=== PATIENT | female | born 1975 | race Caucasian/White ===

== ENCOUNTER → 2017-06-12 | Outpatient (CLI) | payer BC ==
[~2017-06-12] MED LIST: CLON0.5T3 PO; DOCU100C31 PO; ERGO500011 PO; FLUD0.1T10 PO; FLUO20CA20 PO; FLUT0.15 NAE; IBUP-1050 PO; LEVO-14 PO; LEVO50TA6 PO; MECL1TAB42 PO; MODA1TAB PO; MULTTAB PO; ONDA4TAB46 PO; ORALTAB2 PO; POLY335019 PO; SENN-61 PO; TOPI100T34 PO; TRAM-10 PO; VNTHFA/IN INH
--- NOTE | 2017-06-12 16:07 | DIAGNOSTIC IMAGING REPORT ---
R LOWER EXT JOINT WITHOUT CLINICAL HISTORY: RIGHT KNEE PAIN pain TECHNIQUE: Multiaxial MRI acquisition COMPARISON STUDY: None FINDINGS: Signal characteristics the osseous structures are unremarkable. There is no significant bone marrow replacing process. Anterior and posterior cruciate ligaments are intact. The collateral ligaments are unremarkable. Quadriceps tendon is intact. Patellar articulating surface is negative for disruption. Mild edema surrounding the infraspinatus tendon insertion at the anterior tibial tubercles. Very small joint effusion. Dilation of menisci shows lateral meniscus to be unremarkable. Medial meniscus shows grade 2. Intrameniscal degenerative signal although well-defined acute tear is not appreciated. There are findings of moderate thinning of the articular services of the medial and to lesser extent lateral joint compartments. IMPRESSION: 1. Mild infrapatellar tendinopathy. 2. All major ligamentous and tendinous are intact. 3. Mild degenerative substance change medial meniscus with no evidence for meniscal tear. 4. Mild degenerative thinning articular services medial and lateral joint compartments. The above report was generated using voice recognition software. It may contain grammatical, syntax or spelling errors. Electronically signed by: Ricky Velasco M.D. 06/12/2017 4:06 PM Dictated Date/Time: 06/12/2017 4:02 PM
== END | disposition home or self-care (01) ==
PROVIDERS: ATTEND Orthopaedic Surgery
DX: M25.561 Pain in right knee (principal)

== ENCOUNTER 2020-04-22 17:11 | Inpatient (IN) ==
[2020-04-22] MEDS ORDERED: FAMOTIDINE 20MG IV PUSH 20 MG/5 ML SYR IV STA (18:31)
[2020-04-22] MEDS ORDERED: diphenhydrAMINE 50 MG/ML VIAL IV STA (18:31)
[2020-04-22] MEDS ORDERED: DEXAMETHASONE SOD INJ 10 MG/ML VIAL IV ONE (18:31)
[2020-04-22] MEDS ORDERED: SODIUM CHLORIDE 0.9% 1000ML 1,000 ML IV SCH (18:45)
--- NOTE | 2020-04-22 19:31 | Emergency Department Note ---
History of Present Illness General Chief complaint: Facial Injury/Pain Stated complaint: SWOLLEN FACE, EYES BLURRY, CANT SWALLOW Time Seen by Provider: 04/22/20 18:10 History of Present Illness Maximum Pain Intensity: 8 This is a 45-year-old female that presents to the emergency department via private vehicle with complaints of "swollen face, eyes blurry, cannot swallow". The patient states that she had a bite on the right calf region in late February of this year. She was treated with doxycycline for suspected cellulitis. She then notes that Mar 25 of this year she developed a lump behind the right ear. She was once again placed on doxycycline and notes that she had a CT scan performed of the area. She has since then followed up with the PCP as well as infectious disease. She notes that she did have a positive toxoplasmosis IgM but will need to have another 1 to confirm this. She notes persistent swelling to the right side of the face that has not improved much. The patient notes that she is currently on azithromycin and the last dose was to be today but could not tolerate this noting that she had trouble swallowing. She notes that when she awoke today she had swelling to the right side of the face which is worse than what she had before and also notes pain into the right ear, and right eye. She also notes right eye blurriness. She notes that the pain in the right eye is also with movement. Overall discomfort currently is an 8/10. Home Medications Home Medications Medication Instructions Recorded Confirmed Type albuterol sulfate 2 - 4 puff INHALATION Q6H PRN 05/03/18 04/22/20 History meclizine 25 mg PO TID PRN 05/03/18 04/22/20 History multivitamin 1 tab PO QAM 05/03/18 04/22/20 History fluoxetine 80 mg PO QAM 03/26/20 04/22/20 History lorazepam 1 - 2 mg PO HS 04/22/20 04/22/20 History propranolol 40 mg PO DAILY 04/22/20 04/22/20 History sodium chloride 1,000 mg PO DAILY 04/22/20 04/22/20 History sucralfate 1 g PO ACHS 04/22/20 04/22/20 History topiramate 100 mg PO BID 04/22/20 04/22/20 History modafinil 200 mg PO USEASDIRECTD 04/23/20 04/23/20 History Allergies Allergy/AdvReac Type Severity Reaction Status Date / Time latex Allergy Intermediate HIVES Verified 04/22/20 22:03 Bactrim Allergy Mild HIVES Verified 05/09/17 11:59 Cipro Allergy Mild HIVES Verified 05/09/17 11:59 ciprofloxacin Allergy Mild HIVES Verified 04/22/20 22:03 sulfamethoxazole Allergy Mild HIVES Verified 04/22/20 22:03 Cephalosporins Allergy Unknown Hives Verified 04/22/20 22:03 chlorpheniramine Allergy Unknown Unknown Verified 04/22/20 22:03 propoxyphene Allergy Unknown Unknown Verified 04/22/20 22:03 Quinolones Allergy Unknown Unknown Verified 04/22/20 22:03 trimethoprim Allergy Unknown Unknown Verified 04/22/20 22:03 Past Med/Surg History Medical History Depression Migraine No pertinent family history PCOS (polycystic ovarian syndrome) POTS (postural orthostatic tachycardia syndrome) Surgical History H/O dilation and curettage H/O laparoscopy History of hysterectomy Hx of tonsillectomy Social History Smoking Status: Never smoker Hx Alcohol Use: Yes Hx Substance Use: No Preferred Language: Frisian Communication Ability: Effective Extraction Operator Required: No Beliefs That Will Affect Care: None Current Living Situation: Spouse and Family Other Information That Helps Us Care for You: No Feels Safe at Home: Yes Safety Concerns: Feels Safe At This Time Assistive Devices: None Assistive Devices Comment: retainer Review of Systems A total of 10 systems reviewed and were otherwise negative Physical Exam Vital Signs Vital Signs - 24 hr 04/22/20 17:28 04/22/20 20:53 04/22/20 23:07 Temperature 37.1 C Temperature Source Oral Pulse Rate 82 Pulse Rate [Right Finger] 63 63 Respiratory Rate 18 18 18 Respiratory Effort / Characteristics Non-Labored Spontaneous Respiratory Depth Normal Respiratory Pattern Regular Blood Pressure 118/85 Blood Pressure [Right Arm] 126/82 137/88 Blood Pressure Mean 96 Blood Pressure Mean [Right Arm] 96 104 Blood Pressure Position Sitting Pulse Oximetry 97 96 99 Oxygen Delivery Method Room Air Sepsis Recent Fever Within 48 Hours No Sepsis New/Unexplained Change in Mental Status No Sepsis Action Taken by Nursing No Action Required VITAL SIGNS - Vital signs and nursing notes were reviewed. Stable and afebrile. GENERAL -45-year-old female appearing her stated age who is in no acute di stress. Communicates well with provider and answers questions appropriately. SKIN -there are small nonpurulent papules that are throughout the periorbital region and predominantly on the right side of the face and right side of the neck. Mild erythema to these regions. No drainage on examination. There is edema noted to the right side of the face and periorbitally with mild erythema. HEAD - NC/AT. EYES - PERRL with EOMI bilaterally. Sclera anicteric. Palpebral conjunctiva pink and moist with no injection noted. No appreciated photophobia on examination. No evidence of muscle entrapment. Pupil, iris and surrounding structures are within normal limits. EARS - No deformities of external structures noted on gross examination bilaterally. No pain elicited with palpation of the tragus bilaterally. External auditory canals without discharge or otorrhea. Tympanic membranes pearly vega without retraction or bulging. No fluid or purulent material visualized behind the TM. Handle of malleus, umbo, cone of light, pars tensa/flaccid all easily visualized. NOSE - Midline and without cyanosis. No epistaxis or purulent drainage noted. Septum midline without deviation or septal hematoma noted. MOUTH/OROPHARYNX - Without perioral cyanosis. Buccal mucosa pink and moist and without leukoplakia. Tongue midline with equal elevation of palate bilaterally. No tonsillar hypertrophy. There is posterior pharyngeal erythema as well as erythema and mild enlargement of the uvula. NECK - Neck with FROM. No nuchal rigidity. LUNGS - Chest wall symmetric without accessory muscle use, intercostals r etractions, or central cyanosis. Normal vesicular breath sounds CTA B/L. No wheezes, rales, or rhonchi appreciated. CARDIAC - RRR with S1/S2. No murmur, rubs, or gallops appreciated. EXTREMITIES - No clubbing or peripheral cyanosis.+5/5 strength noted in UE/LE bilaterally. NEUROLOGIC - Cranial nerves II through XII grossly intact. PSYCH - A&O, and cooperates fully with examiner. Pt is very pleasant and interacts well with examiner. Course Administered Medications Calcium Carbonate (Calcium Carbonate 500 Mg Chewable Tab) 500 mg PO Q6 PRN PRN Reason: Indigestion Stop: 05/23/20 22:20 Last Admin: 04/24/20 13:42 Dose: 500 mg Documented by: [id number] Cetirizine HCl (Cetirizine Hcl 10 Mg Tablet) [facility] [place] Stop: 05/23/20 08:59 Last Admin: 04/24/20 08:57 Dose: 10 mg Documented by: [id number] Admin: 04/23/20 10:04 Dose: 10 mg Documented by: [id number] Fluoxetine HCl (Fluoxetine Hcl 20 Mg Cap) 80 mg PO [facility] [place] Stop: 05/23/20 08:59 Last Admin: 04/24/20 08:55 Dose: 80 mg Documented by: [id number] Admin: 04/23/20 10:04 Dose: 80 mg Documented by: [id number] Famotidine 20 mg/ Syringe 5 mls @ 2.5 mls/min IV BID [facility] Stop: 05/23/20 08:59 Last Admin: 04/24/20 21:04 Dose: 2.5 mls/min Documented by: [id number] Admin: 04/24/20 09:04 Dose: 2.5 mls/min Documented by: [id number] Admin: 04/23/20 21:04 Dose: 2.5 mls/min Documented by: [id number] Admin: 04/23/20 10:05 Dose: 2.5 mls/min Documented by: [id number] Ampicillin Sodium/Sulbactam Sodium 3,000 mg/ Sodium Chloride 108 mls @ 200 mls/hr IV Q6H [facility]; Protocol Stop: 04/30/20 05:59 Last Infusion: 04/25/20 06:40 Dose: 0 mls/hr Documented by: [id number] Admin: 04/25/20 06:04 Dose: 200 mls/hr Documented by: [id number] Infusion: 04/25/20 00:14 Dose: 0 mls/hr Documented by: [id number] Admin: 04/24/20 23:38 Dose: 200 mls/hr Documented by: [id number] Infusion: 04/24/20 19:16 Dose: 0 mls/hr Documented by: [id number] Admin: 04/24/20 18:35 Dose: 200 mls/hr Documented by: [id number] Infusion: 04/24/20 12:21 Dose: 0 mls/hr Documented by: [id number] Admin: 04/24/20 11:30 Dose: 200 mls/hr Documented by: [id number] Infusion: 04/24/20 06:26 Dose: 0 mls/hr Documented by: [id number] Admin: 04/24/20 05:50 Dose: 200 mls/hr Documented by: [id number] Infusion: 04/24/20 00:06 Dose: 0 mls/hr Documented by: [id number] Admin: 04/23/20 23:29 Dose: 200 mls/hr Documented by: [id number] Infusion: 04/23/20 18:52 Dose: 0 mls/hr Documented by: [id number] Admin: 04/23/20 17:57 Dose: 200 mls/hr Documented by: [id number] Infusion: 04/23/20 12:48 Dose: 0 mls/hr Documented by: [id number] Admin: 04/23/20 11:56 Dose: 200 mls/hr Documented by: [id number] Infusion: 04/23/20 06:13 Dose: 0 mls/hr Documented by: [id number] Admin: 04/23/20 05:24 Dose: 200 mls/hr Documented by: [id number] Methylprednisolone 1,000 mg/ (Dextrose) 266 mls @ 266 mls/hr IV Q24H [facility] Stop: 04/26/20 13:59 Last Infusion: 04/24/20 15:07 Dose: 0 mls/hr Documented by: [id number] Admin: 04/24/20 13:43 Dose: 266 mls/hr Documented by: [id number] Infusion: 04/23/20 16:34 Dose: 0 mls/hr Documented by: [id number] Admin: 04/23/20 15:12 Dose: 266 mls/hr Documented by: [id number] Lorazepam (Ativan) 0.25 mg in 0.5 mls @ 0.5 mls/min IV Q12H PRN PRN Reason: for anxiety or prior to MRI Stop: 05/23/20 11:55 Last Admin: 04/23/20 14:04 Dose: 0.5 mls/min Documented by: [id number] Insulin Aspart (Insulin Aspart 100 Units/Ml 3 Ml Pen) 0 units SC Q6 [facility] Stop: 05/25/20 05:59 Last Admin: 04/25/20 06:10 Dose: Not Given Documented by: [id number] Cosigned by: [id number] Ketorolac Tromethamine (Ketorolac Tromethamine 15 Mg/Ml Vial) 15 mg IV Q6H PRN PRN Reason: Pain Stop: 04/28/20 01:57 Last Admin: 04/23/20 15:17 Dose: 15 mg Documented by: [id number] Admin: 04/23/20 02:22 Dose: 15 mg Documented by: [id number] Lorazepam (Lorazepam 1 Mg Tab) 1 mg PO HS [facility] Stop: 05/23/20 20:59 Last Admin: 04/24/20 21:04 Dose: 1 mg Documented by: [id number] Admin: 04/23/20 21:01 Dose: 1 mg Documented by: [id number] Melatonin (Melatonin 3 Mg Tab) 3 mg PO HS PRN PRN Reason: Sleep Stop: 05/23/20 01:14 Last Admin: 04/24/20 21:04 Dose: 3 mg Documented by: [id number] Admin: 04/23/20 21:01 Dose: 3 mg Documented by: [id number] Multivitamins (Multivitamin Tab) 1 tab PO QAM [facility] Stop: 05/23/20 08:59 Last Admin: 04/24/20 08:56 Dose: 1 tab Documented by: [id number] Admin: 04/23/20 10:03 Dose: 1 tab Documented by: [id number] Ondansetron HCl (Ondansetron Inj 2 Mg/Ml 2 Ml Vial) 4 mg IV Q6H PRN PRN Reason: Nausea Stop: 05/23/20 01:05 Last Admin: 04/23/20 01:45 Dose: 4 mg Documented by: [id number] Propranolol HCl (Propranolol Hcl 20 Mg Tab) 40 mg PO DAILY [facility] Stop: 05/23/20 08:59 Last Admin: 04/24/20 08:56 Dose: 40 mg Documented by: [id number] Admin: 04/23/20 10:03 Dose: 40 mg Documented by: [id number] Sodium Chloride (Sodium Chloride 1 Gm Tablet) 1 gm PO DAILY [facility] Stop: 05/23/20 08:59 Last Admin: 04/24/20 08:56 Dose: 1 gm Documented by: [id number] Admin: 04/23/20 10:04 Dose: 1 gm Documented by: [id number] Sucralfate (Sucralfate 1 Gm Tab) 1 gm PO ACHS [facility] Stop: 05/23/20 07:29 Last Admin: 04/24/20 21:04 Dose: 1 gm Documented by: [id number] Admin: 04/24/20 17:56 Dose: 1 gm Documented by: [id number] Admin: 04/24/20 11:30 Dose: 1 gm Documented by: [id number] Admin: 04/24/20 08:55 Dose: 1 gm Documented by: [id number] Admin: 04/23/20 21:01 Dose: 1 gm Documented by: [id number] Admin: 04/23/20 16:30 Dose: 1 gm Documented by: [id number] Admin: 04/23/20 12:59 Dose: Not Given Documented by: [id number] Admin: 04/23/20 10:02 Dose: 1 gm Documented by: [id number] Topiramate (Topiramate 100 Mg Tab) 100 mg PO BID@0900,1400 [facility] Stop: 05/23/20 08:59 Last Admin: 04/24/20 13:44 Dose: 100 mg Documented by: [id number] Admin: 04/24/20 08:57 Dose: 100 mg Documented by: [id number] Admin: 04/23/20 14:04 Dose: 100 mg Documented by: [id number] Admin: 04/23/20 05:34 Dose: 100 mg Documented by: [id number] Discontinued Medications Acetaminophen (Acetaminophen 500 Mg Tab) 1,000 mg PO NOW STA Stop: 04/23/20 00:35 Last Admin: 04/23/20 00:39 Dose: 1,000 mg Documented by: [id number] Dexamethasone (Dexamethasone Sod Inj 10 Mg/Ml Vial) 10 mg IV NOW ONE Stop: 04/22/20 18:32 Last Admin: 04/22/20 19:12 Dose: 10 mg Documented by: [id number] Diphenhydramine HCl (Diphenhydramine Hcl 50 Mg/Ml Vial) 25 mg IV NOW STA Stop: 04/22/20 18:32 Last Admin: 04/22/20 19:13 Dose: 25 mg Documented by: [id number] Gadobutrol (Gadobutrol 65ml Vial) 11.5 ml IV ONCE ONE Stop: 04/23/20 14:51 Last Admin: 04/23/20 14:50 Dose: 11.5 ml Documented by: [id number] Famotidine (Pepcid 20mg Iv Push) 20 mg in 5 mls @ 2.5 mls/min IV NOW STA Stop: 04/22/20 18:32 Last Admin: 04/22/20 19:13 Dose: 2.5 mls/min Documented by: [id number] Sodium Chloride (Nss 1000ml) 1,000 mls @ 999 mls/hr IV .Q1H1M [facility] Stop: 04/22/20 19:45 Last Infusion: 04/22/20 20:24 Dose: 0 mls/hr Documented by: [id number] Admin: 04/22/20 19:13 Dose: 999 mls/hr Documented by: [id number] Ampicillin Sodium/Sulbactam Sodium 3,000 mg/ Sodium Chloride 108 mls @ 200 mls/hr IV NOW STA; Protocol Stop: 04/22/20 23:33 Last Infusion: 04/23/20 00:09 Dose: 0 mls/hr Documented by: [id number] Admin: 04/22/20 23:27 Dose: 200 mls/hr Documented by: [id number] Sodium Chloride (Nss 1000ml) 1,000 mls @ 100 mls/hr IV .Q10H [facility] Stop: 05/23/20 01:05 Last Infusion: 04/23/20 11:07 Dose: 0 mls/hr Documented by: [id number] Infusion: 04/23/20 06:13 Dose: 100 mls/hr Documented by: [id number] Infusion: 04/23/20 05:24 Dose: 0 mls/hr Documented by: [id number] Admin: 04/23/20 01:44 Dose: 100 mls/hr Documented by: [id number] Methylprednisolone 60 mg/ (Syringe) 0.96 mls @ 1.5 mls/min IV DAILY [facility] Stop: 05/23/20 08:59 Last Admin: 04/23/20 10:04 Dose: 1.5 mls/min Documented by: [id number] Sodium Chloride (Nss 1000ml) 1,000 mls @ 80 mls/hr IV .[id number] [facility] Stop: 04/24/20 00:29 Last Infusion: 04/24/20 03:29 Dose: 0 mls/hr Documented by: [id number] Infusion: 04/23/20 16:34 Dose: 80 mls/hr Documented by: [id number] Infusion: 04/23/20 14:55 Dose: 0 mls/hr Documented by: [id number] Admin: 04/23/20 12:55 Dose: 80 mls/hr Documented by: [id number] Insulin Aspart (Insulin Aspart 100 Units/Ml 3 Ml Pen) 0 units SC ACHS [facility] Stop: 05/23/20 16:29 Last Admin: 04/24/20 21:57 Dose: Not Given Documented by: [id number] Cosigned by: [id number] Admin: 04/24/20 19:28 Dose: Not Given Documented by: [id number] Cosigned by: [id number] Admin: 04/24/20 12:27 Dose: Not Given Documented by: [id number] Cosigned by: [id number] Admin: 04/24/20 08:51 Dose: Not Given Documented by: [id number] Cosigned by: [id number] Admin: 04/23/20 21:54 Dose: Not Given Documented by: [id number] Cosigned by: [id number] Admin: 04/23/20 17:18 Dose: Not Given Documented by: [id number] Cosigned by: [id number] Ioversol (Ioversol 100ml) 94 ml IV ONCE ONE Stop: 04/22/20 21:07 Last Admin: 04/22/20 21:11 Dose: 94 ml Documented by: [id number] Lorazepam (Lorazepam 1 Mg Tab) 2 mg PO NOW STA Stop: 04/23/20 01:15 Last Admin: 04/23/20 01:45 Dose: 2 mg Documented by: [id number] Medical Decision Making Laboratory Data Result diagrams: 04/24/20 06:02 04/24/20 06:02 Lab Results 04/22/20 04/22/20 04/22/20 Range/Units 19:00 19:07 19:07 WBC 7.81 (4.8-10.8) K/uL RBC 4.06 L (4.2-5.4) M/uL Hgb 11.9 L (12.0-16.0) g/dL Hct 36.8 L (37-47) % MCV 90.6 (80-100) fL MCH 29.3 (25-34) pg MCHC 32.3 (32-36) g/dL RDW Std Deviation 47.1 H (36.4-46.3) fL RDW Coeff of Doris 14.3 (11.5-14.5) % Plt Count 249 (130-400) K/uL MPV 11.3 H (7.4-10.4) fL Immature Gran % (Auto) 1.2 % Neut % (Auto) 49.6 % Lymph % (Auto) 37.1 % [place] % (Auto) 6.3 % Eos % (Auto) 5.4 % Baso % (Auto) 0.4 % Neut # (Auto) 3.88 (1.4-6.5) K/uL Lymph # (Auto) 2.90 (1.2-3.4) K/uL [place] # (Auto) 0.49 (0.11-0.59) K/uL Eos # (Auto) 0.42 (0-0.5) K/uL Baso # (Auto) 0.03 (0-0.2) K/uL Immature Gran # (Auto) 0.09 H (0.00-0.02) K/uL ESR (0-21) mm/hr Sodium 140 (136-145) mmol/L Potassium 4.0 (3.5-5.1) mmol/L Chloride 107 (98-107) mmol/L Carbon Dioxide 29 (21-32) mmol/L Anion Gap 4.0 (3-11) BUN 15 (7-18) mg/dl Creatinine 0.66 (0.6-1.2) mg/dl Est Cr Clr Drug Dosing 135.5 ml/min Est GFR ( Amer) 124.5 Est GFR (Non-Af Amer) 107.4 BUN/Creatinine Ratio 22.4 H (10-20) Glucose 81 (70-99) mg/dl POC Glucose (70-99) mg/dl Estimat Average Glucose mg/dl Hemoglobin A1c (4.5-5.6) % Calcium 8.8 (8.5-10.1) mg/dl Magnesium 2.4 (1.8-2.4) mg/dl Total Bilirubin 0.2 (0.2-1) mg/dl AST 13 L (15-37) U/L ALT 19 (12-78) U/L Alkaline Phosphatase 65 (45-117) U/L C-Reactive Protein 0.49 H (0-0.29) mg/dl Total Protein 6.9 (6.4-8.2) gm/dl Albumin 3.0 L (3.4-5.0) gm/dl Globulin 3.9 (2.5-4.0) gm/dl Albumin/Globulin Ratio 0.8 L (0.9-2) Lipase 81 (73-393) U/L TSH 3.120 (0.300-4.500) uIu/ml Urine Color Yellow Urine Appearance Clear (Clear) Urine pH 7.5 (4.5-7.5) Ur Specific [place] 1.015 (1.000-1.030) Urine Protein Negative (Negative) Urine Glucose (UA) Negative (Negative) Urine Ketones Negative (Negative) Urine Blood Negative (Negative) Urine Nitrite Negative (Negative) Urine Bilirubin Negative (Negative) Urine Urobilinogen Negative (Negative) Ur Leukocyte Esterase Negative (Negative) 04/22/20 04/23/20 04/23/20 Range/Units 19:07 06:54 06:54 WBC 9.53 (4.8-10.8) K/uL RBC 4.19 L (4.2-5.4) M/uL Hgb 12.3 (12.0-16.0) g/dL Hct 37.7 (37-47) % MCV 90.0 (80-100) fL MCH 29.4 (25-34) pg MCHC 32.6 (32-36) g/dL RDW Std Deviation 46.7 H (36.4-46.3) fL RDW Coeff of Doris 14.3 (11.5-14.5) % Plt Count 273 (130-400) K/uL MPV 11.3 H (7.4-10.4) fL Immature Gran % (Auto) 0.6 % Neut % (Auto) 88.9 % Lymph % (Auto) 10.0 % [place] % (Auto) 0.5 % Eos % (Auto) 0.0 % Baso % (Auto) 0.0 % Neut # (Auto) 8.47 H (1.4-6.5) K/uL Lymph # (Auto) 0.95 L (1.2-3.4) K/uL [place] # (Auto) 0.05 L (0.11-0.59) K/uL Eos # (Auto) 0.00 (0-0.5) K/uL Baso # (Auto) 0.00 (0-0.2) K/uL Immature Gran # (Auto) 0.06 H (0.00-0.02) K/uL ESR 25 H (0-21) mm/hr Sodium 139 (136-145) mmol/L Potassium 3.9 (3.5-5.1) mmol/L Chloride 107 (98-107) mmol/L Carbon Dioxide 22 (21-32) mmol/L Anion Gap 9.0 (3-11) BUN 12 (7-18) mg/dl Creatinine 0.81 (0.6-1.2) mg/dl Est Cr Clr Drug Dosing 110.0 ml/min Est GFR ( Amer) 102.4 Est GFR (Non-Af Amer) 88.3 BUN/Creatinine Ratio 15.2 (10-20) Glucose 139 H (70-99) mg/dl POC Glucose (70-99) mg/dl Estimat Average Glucose mg/dl Hemoglobin A1c (4.5-5.6) % Calcium 8.6 (8.5-10.1) mg/dl Magnesium 2.3 (1.8-2.4) mg/dl Total Bilirubin (0.2-1) mg/dl AST (15-37) U/L ALT (12-78) U/L Alkaline Phosphatase (45-117) U/L C-Reactive Protein (0-0.29) mg/dl Total Protein (6.4-8.2) gm/dl Albumin (3.4-5.0) gm/dl Globulin (2.5-4.0) gm/dl Albumin/Globulin Ratio (0.9-2) Lipase (73-393) U/L TSH (0.300-4.500) uIu/ml Urine Color Urine Appearance (Clear) Urine pH (4.5-7.5) Ur Specific [place] (1.000-1.030) Urine Protein (Negative) Urine Glucose (UA) (Negative) Urine Ketones (Negative) Urine Blood (Negative) Urine Nitrite (Negative) Urine Bilirubin (Negative) Urine Urobilinogen (Negative) Ur Leukocyte Esterase (Negative) 04/23/20 04/23/20 Range/Units 06:54 17:04 WBC (4.8-10.8) K/uL RBC (4.2-5.4) M/uL Hgb (12.0-16.0) g/dL Hct (37-47) % MCV (80-100) fL MCH (25-34) pg MCHC (32-36) g/dL RDW Std Deviation (36.4-46.3) fL RDW Coeff of Doris (11.5-14.5) % Plt Count (130-400) K/uL MPV (7.4-10.4) fL Immature Gran % (Auto) % Neut % (Auto) % Lymph % (Auto) % [place] % (Auto) % Eos % (Auto) % Baso % (Auto) % Neut # (Auto) (1.4-6.5) K/uL Lymph # (Auto) (1.2-3.4) K/uL [place] # (Auto) (0.11-0.59) K/uL Eos # (Auto) (0-0.5) K/uL Baso # (Auto) (0-0.2) K/uL Immature Gran # (Auto) (0.00-0.02) K/uL ESR (0-21) mm/hr Sodium (136-145) mmol/L Potassium (3.5-5.1) mmol/L Chloride (98-107) mmol/L Carbon Dioxide (21-32) mmol/L Anion Gap (3-11) BUN (7-18) mg/dl Creatinine (0.6-1.2) mg/dl Est Cr Clr Drug Dosing ml/min Est GFR ( Amer) Est GFR (Non-Af Amer) BUN/Creatinine Ratio (10-20) Glucose (70-99) mg/dl POC Glucose 157 H (70-99) mg/dl Estimat Average Glucose 117 mg/dl Hemoglobin A1c 5.7 H (4.5-5.6) % Calcium (8.5-10.1) mg/dl Magnesium (1.8-2.4) mg/dl Total Bilirubin (0.2-1) mg/dl AST (15-37) U/L ALT (12-78) U/L Alkaline Phosphatase (45-117) U/L C-Reactive Protein (0-0.29) mg/dl Total Protein (6.4-8.2) gm/dl Albumin (3.4-5.0) gm/dl Globulin (2.5-4.0) gm/dl Albumin/Globulin Ratio (0.9-2) Lipase (73-393) U/L TSH (0.300-4.500) uIu/ml Urine Color Urine Appearance (Clear) Urine pH (4.5-7.5) Ur Specific [place] (1.000-1.030) Urine Protein (Negative) Urine Glucose (UA) (Negative) Urine Ketones (Negative) Urine Blood (Negative) Urine Nitrite (Negative) Urine Bilirubin (Negative) Urine Urobilinogen (Negative) Ur Leukocyte Esterase (Negative) Imaging Data Radiologist's Impression: CT SCAN OF THE BRAIN WITHOUT IV CONTRAST CLINICAL HISTORY: Blurry vision of the right eye. Facial edema. COMPARISON STUDY: CT of the brain dated 09/18/2012. TECHNIQUE: Unenhanced axial CT scan of the brain is performed from the vertex to the skull base. A dose lowering technique was utilized adhering to the principles of ALARA. CT DOSE: 986.12 mGy.cm FINDINGS: Brain parenchyma: The brain parenchyma is normal in appearance. There is no hemorrhage, mass effect, or evidence of acute territorial ischemia by CT criteria. Vega-white matter differentiation is preserved. No extra-axial fluid collection is seen. Ventricles, sulci, cisterns: Normal in configuration. Intracranial vasculature: The visualized intracranial vasculature at the skull base is normal in appearance. Calvarium: Unremarkable. Sinuses and mastoids: The visualized paranasal sinuses are clear. The mastoid air cells are well pneumatized. Orbits: The bony orbits are grossly intact. IMPRESSION: No acute intracranial abnormality. ACT 112: Negative or not required by law. Electronically signed by: Himanshu Garza M.D. 04/22/2020 9:[address] SCAN OF THE NECK WITH IV CONTRAST CLINICAL HISTORY: Right facial edema. Blurred vision in the right eye. Throat edema. COMPARISON STUDY: CT scan of the neck dated 03/26/2020. TECHNIQUE: Following the IV administration of 94 cc of Optiray 320, CT scan of the soft tissues of the neck was performed from the skull base to the upper chest. Images are reviewed in the axial, sagittal, and coronal planes. IV contrast was administered without complication. A dose lowering technique was utilized adhering to the principles of ALARA. FINDINGS: Soft tissues: The inflammatory process in the right posterior neck seen on 03/26/2020 has resolved. No significant soft tissue inflammation is identified. No organized fluid collection is seen. Mild periorbital and premalar soft tissue inflammation is suggested bilaterally, right greater than left. This is new from previous. Pharynx: There is enlargement of the palatine and lingual tonsils, which is similar in appearance to previous. This narrows the airway. No peritonsillar abscess is identified. No significant inflammatory change is seen. The pharyngeal soft tissues are otherwise normal in appearance. There is no eviden ce of mass lesion. The vocal cords are symmetric. The parapharyngeal fat is well maintained. The prevertebral/retropharyngeal soft tissues are within normal limits. The epiglottis is normal. Lymphadenopathy: There are shotty cervical lymph nodes. These are not pathologically enlarged by size criteria. Hyperemic nodes seen on 03/26/2020 have resolved Thyroid: Normal in size and attenuation. Salivary glands: The parotid and submandibular glands are within normal limits. Brain parenchyma: The visualized brain parenchyma at the skull base is normal in appearance. Vascular structures: The carotid arteries and jugular veins are patent bilaterally. Skeletal structures: Imaged portions of the calvarium at the skull base are within normal limits. The cervical spine appears intact. Orbits: The bony orbits are intact. Orbital contents are normal in appearance. Sinuses and mastoids: The paranasal sinuses are clear. The mastoid air cells are well pneumatized. The middle ear structures are normal as imaged. Lung apices: Visualized apical lung parenchyma is clear. IMPRESSION: 1. There is mild bilateral periorbital and premalar soft tissue inflammation, right greater than left. Correlate clinically for evidence of mild bilateral periorbital/facial cellulitis. 2. The bony orbits are intact and orbital contents are normal in appearance. 3. The inflammatory process identified in the right posterior neck seen on 03/26/2020 has resolved. 4. There is enlargement of the palatine and lingual tonsils which cause narrowing of the airway. This is similar in appearance to 03/26/2020 examination. Correlate clinically for evidence of a mild pharyngitis/tonsillitis. 5. Additional findings as above. ACT 112: Negative or not required by law. Electronically signed by: Himanshu Garza M.D. 04/22/2020 9:42 PM [facility] Narrative Patient was seen and evaluated as above in room C3. Review was performed of nursing notes and vital signs. I did review pertinent previous visits and patient history. After obtaining a thorough history and physical examination the above work up was performed. I will note that I did have our case packer obtain report of the patient recent visits to infectious disease with Natasha. I reviewed these. The patient presents to us today noting worsening of the right-sided facial edema, and now possible development with associated pain to the right side of the face and right periorbital region now with blurriness in the right eye. No speech trouble or weakness appreciated on my examination. No focal deficit. Right eye examination within normal limits. Vital signs are stable. Patient was to finish azithromycin today but could not tolerate the pill noting trouble swallowing. I reviewed her previous visits from here as well. Decision was made to obtain a CT scan of the brain to rule out any acute intracranial process as well as repeat the soft tissue neck CT to evaluate for any progressing process. The CT of the head was negative. The CT scan of the soft tissue neck essentially is unchanged from before however will note that now the patient has right eye blurriness and pain with EOMs of the right eye. For this reason we must consider periorbital cellulitis. Certainly this could be a similar inflammatory process or atypical allergic reaction. With the patient presentation she was initially given medications to help potential allergic reaction and was reevaluated and there was improvement of her symptoms but certainly a similar response could be had with an infection. After thoroughly reviewing all the records from [facility] and her previous visits here we discussed options of care. There is no leukocytosis or anemia. No emergent metabolic disturbance. Mild elevation of ESR and CRP. There is mild decrease in hemoglobin at 11.9 which is felt to be very similar to previous. Urinalysis does not suggest infection. TSH reveals a euthyroid state. In discussing options of care with the patient it was felt that given her worsening symptoms and now with subjective complaints of right eye blurriness in the setting of painful EOMs which is new with right-sided facial edema inpatient management with IV antibiotics/further evaluation would be warranted. Patient amenable to staying. While in the department, I personally reevaluated the patient several times and each time the patient was found to be resting comfortably but noting persistence of the right-sided facial discomfort/swelling. Case was discussed with the attending physician. GCS: 15 In the evaluation and treatment of this patient the following differential diagnoses were entertained: Allergic reaction, orbital cellulitis, periorbital cellulitis, medication reaction, cellulitis, abscess, among others Impression & Plan Right-sided face pain, Swelling of right side of face, Erythema of face Discharge Plan Visit Data Chief Complaint: Facial Injury/Pain Stated Complaint: SWOLLEN FACE, EYES BLURRY, CANT SWALLOW ED Provider: Elder Gil ED Midlevel Provider: Sergo Altamirano Discharge Problem: Right-sided face pain, Swelling of right side of face, Erythema of face Patient Disposition: Admitted As Inpatient Condition: Good Discharge Instructions Interventions: ED Discharge Assessment Last Done: 04/23/20 00:52
[2020-04-22 19:40] LABS: Appearance Urine Clear (Clear); Bilirubin Urine Negative (Negative); Blood Urine Negative (Negative); Color Urine Yellow; Glucose Urine UA Negative (Negative); Ketones Urine Negative (Negative); Leukocyte Esterase Urine Negative (Negative); Nitrite Urine Negative (Negative); Protein Urine Negative (Negative); Specific Gravity Urine 1.015 (1.000-1.030); Urobilinogen Urine Negative (Negative); pH Urine 7.5 (4.5-7.5)
[2020-04-22 19:42] LABS: Basophils # (auto) 0.03 K/uL (0-0.2); Basophils % (auto) 0.4 %; Eosinophils # (auto) 0.42 K/uL (0-0.5); Eosinophils % (auto) 5.4 %; Hematocrit (blood only) 36.8 % (37-47); Hemoglobin 11.9 g/dL (12.0-16.0); Immature Granulocytes # (auto) 0.09 K/uL (0.00-0.02); Immature Granulocytes % (auto) 1.2 %; Lymphocytes % (auto) 37.1 %; Mean Corpuscular Hemoglobin 29.3 pg (25-34); Mean Corpuscular Hgb Conc 32.3 g/dL (32-36); Mean Corpuscular Volume 90.6 fL (80-100); Mean Platelet Volume 11.3 fL (7.4-10.4); Monocytes # (auto) 0.49 K/uL (0.11-0.59); Monocytes % (auto) 6.3 %; Neutrophils # (auto) 3.88 K/uL (1.4-6.5); Neutrophils % (auto) 49.6 %; Platelet Count 249 K/uL (130-400); RDW Coefficient of Variation 14.3 % (11.5-14.5); RDW Standard Deviation 47.1 fL (36.4-46.3); Red Blood Count 4.06 M/uL (4.2-5.4); White Blood Count 7.81 K/uL (4.8-10.8)
[2020-04-22 19:57] LABS: BUN Creatinine Ratio 22.4 (10-20); Calcium 8.8 mg/dl (8.5-10.1); Creatinine Clr Calc Pharmacy 135.5 ml/min; Est GFR (African American) 124.5; Est GFR (Non-African American) 107.4; Magnesium 2.4 mg/dl (1.8-2.4)
[2020-04-22 20:07] LABS: Albumin Globulin Ratio 0.8 (0.9-2); Bilirubin,Total 0.2 mg/dl (0.2-1); Globulin 3.9 gm/dl (2.5-4.0); Thyroid Stimulating Hormone 3.12 uIu/ml (0.300-4.500); Total Protein 6.9 gm/dl (6.4-8.2)
[2020-04-22 20:18] LABS: C Reactive Protein 0.49 mg/dl (0-0.29)
[2020-04-22] MEDS ORDERED: IOVERSOL 100ml IV ONE (21:06)
--- NOTE | 2020-04-22 21:28 | CT Scan Report ---
CT SCAN OF THE BRAIN WITHOUT IV CONTRAST CLINICAL HISTORY: Blurry vision of the right eye. Facial edema. COMPARISON STUDY: CT of the brain dated 09/18/2012. TECHNIQUE: Unenhanced axial CT scan of the brain is performed from the vertex to the skull base. A d ose lowering technique was utilized adhering to the principles of ALARA. CT DOSE: 986.12 mGy.cm FINDINGS: Brain parenchyma: The brain parenchyma is normal in appearance. There is no hemorrhage, mass effect, or evidence of acute territorial ischemia by CT criteria. Vega-white matter differentiation is preser sherin. No extra-axial fluid collection is seen. Ventricles, sulci, cisterns: Normal in configuration. Intracranial vasculature: The visualized intracranial vasculature at the skull base is normal in appe arance. Calvarium: Unremarkable. Sinuses and mastoids: The visualized paranasal sinuses are clear. The mastoid air cells are well pneu matized. Orbits: The bony orbits are grossly intact. IMPRESSION: No acute intracranial abnormality. ACT 112: Negative or not required by law. Electronically signed by: Himanshu Garza M.D. 04/22/2020 9:27 PM
--- NOTE | 2020-04-22 21:43 | CT Scan Report ---
CT SCAN OF THE NECK WITH IV CONTRAST CLINICAL HISTORY: Right facial edema. Blurred vision in the right eye. Throat edema. COMPARISON STUDY: CT scan of the neck dated 03/26/2020. TECHNIQUE: Following the IV administration of 94 cc of Optiray 320, CT scan of the soft tissues of e neck was performed from the skull base to the upper chest. Images are reviewed in the axial, sagitt al, and coronal planes. IV contrast was administered without complication. A dose lowering techniqu e was utilized adhering to the principles of ALARA. FINDINGS: Soft tissues: The inflammatory process in the right posterior neck seen on 03/26/2020 has resolved. No significant soft tissue inflammation is identified. No organized fluid collection is seen. Mild ghazala orbital and premalar soft tissue inflammation is suggested bilaterally, right greater than left. This is new from previous. Pharynx: There is enlargement of the palatine and lingual tonsils, which is similar in appearance to previous. This narrows the airway. No peritonsillar abscess is identified. No significant inflammator y change is seen. The pharyngeal soft tissues are otherwise normal in appearance. There is no eviden ce of mass lesion. The vocal cords are symmetric. The parapharyngeal fat is well maintained. The prev ertebral/retropharyngeal soft tissues are within normal limits. The epiglottis is normal. Lymphadenopathy: There are shotty cervical lymph nodes. These are not pathologically enlarged by size criteria. Hyperemic nodes seen on 03/26/2020 have resolved Thyroid: Normal in size and attenuation. Salivary glands: The parotid and submandibular glands are within normal limits. Brain parenchyma: The visualized brain parenchyma at the skull base is normal in appearance. Vascular structures: The carotid arteries and jugular veins are patent bilaterally. Skeletal structures: Imaged portions of the calvarium at the skull base are within normal limits. The cervical spine appears intact. Orbits: The bony orbits are intact. Orbital contents are normal in appearance. Sinuses and mastoids: The paranasal sinuses are clear. The mastoid air cells are well pneumatized. e middle ear structures are normal as imaged. Lung apices: Visualized apical lung parenchyma is clear. IMPRESSION: 1. There is mild bilateral periorbital and premalar soft tissue inflammation, right greater than left . Correlate clinically for evidence of mild bilateral periorbital/facial cellulitis. 2. The bony orbits are intact and orbital contents are normal in appearance. 3. The inflammatory process identified in the right posterior neck seen on 03/26/2020 has resolved. 4. There is enlargement of the palatine and lingual tonsils which cause narrowing of the airway. This is similar in appearance to 03/26/2020 examination. Correlate clinically for evidence of a mild phary ngitis/tonsillitis. 5. Additional findings as above. ACT 112: Negative or not required by law. Electronically signed by: Himanshu Garza M.D. 04/22/2020 9:42 PM
[2020-04-22] MEDS ORDERED: AMPICILLIN/SULBACTAM SOD 3,000 MG in 0.9 % SODIUM CHLORIDE 100 ML IV STA (23:01)
[2020-04-23] MEDS ORDERED: ACETAMINOPHEN 500 MG TAB PO STA (00:34)
[2020-04-23] MEDS ORDERED: SODIUM CHLORIDE 0.9% 1000ML 1,000 ML IV SCH ×2 (01:06→12:00)
[2020-04-23] MEDS ORDERED: ACETAMINOPHEN 325 MG TAB PO PRN ×2 (01:06→19:00)
[2020-04-23] MEDS ORDERED: ALBUTEROL HFA 8 GM INHALER INH PRN (01:06)
[2020-04-23] MEDS ORDERED: MECLIZINE HCL 25 MG TAB PO PRN (01:13)
[2020-04-23] MEDS ORDERED: AMPICILLIN/SULBACTAM CONSULT ACTIVE PRN (01:14)
[2020-04-23] MEDS ORDERED: LORazepam 1 MG TAB PO STA (01:14)
[2020-04-23] MEDS ORDERED: LORazepam 1 MG TAB PO SCH (01:30)
[2020-04-23] MEDS: ONDANSETRON INJ 2 MG/ML 2 ML VIAL IV PRN (01:45)
[2020-04-23] MEDS ORDERED: MoRPHine SULFATE 4 MG/ML 1 ML CARP\\VIAL IV PRN (01:57)
[2020-04-23] MEDS: KETOROLAC TROMETHAMINE 15 MG/ML VIAL IV PRN ×2 (02:22→15:17)
--- NOTE | 2020-04-23 04:30 | History and Physical Report ---
DATE OF ADMISSION: 04/23/2020 CHIEF COMPLAINT: Facial swelling and pain. HISTORY OF PRESENT ILLNESS: This is a 45-year-old female with past medical history significant for polycystic ovarian syndrome, impaired fasting glucose, hypothyroidism, obstructive sleep apnea on CPAP, hx of POTS, morbid obesity, vitamin D deficiency, urticaria due to heat, migraines, autonomic dysfunction, allergic contact dermatitis due to adhesives, major depression, history of syncope, generalized anxiety disorder, social anxiety disorder, binge eating disorder, who lives with her and family, comes because of facial swelling. The patient initially she was treated for right lower extremity cellulitis in February. She developed right-sided neck pain with right retroauricular mass and treated with doxycycline. Lyme testing at that time was negative. Blood cultures were negative. At that time, a CT scan of the neck was done which showed inflammatory process identified in the soft tissue of the right posterior neck below the skull base centered around the sternocleidomastoid muscle suggestive of cellulitis, myositis, lymphadenitis, and she had a course of prednisone and also 2 courses of doxycycline. At that time, and got improved and then got worse and again on 03/31/2020, she had daily ceftriaxone for 5 days with resolution of redness, but still with some swelling and she was transitioned to Keflex on 04/04/2020 and doxycycline was completed. She had increased right neck swelling again with ongoing night sweats and she was seen by [facility] by Dr. Dao Calhoun and since the patient has 3 cats at home and dog, thought could be cat-scratch disease and she was prescribed 10 days of azithromycin, started on 04/13/2020, and also suggested, if it does not improve, for biopsy. With azithromycin, symptoms of the neck mass, right periauricular mass and tenderness improved and swelling has gone down and she almost finished the course, has only one more day of azithromycin left, but on skin grader of 04/22/2020 at 2:00 a.m., she woke up with facial swelling, lumps on the face more on the right side than the left side and also some difficulty swallowing. It was not getting better and also had blurred vision in the right eye. She called ID, Dr. Calhoun, at [facility] and he referred to come to the ER and when she came in, CT of the head was done in the ER which was unremarkable. Soft tissue neck was done again, which shows mild bilateral periorbital and premalar soft tissue inflammation, right greater than left, correlate clinically for evidence of mild bilateral periorbital facial cellulitis. Inflammatory process identified in the right posterior neck seen on 03/26/2020 has resolved. There is enlargement of the palatine and lingual tonsils which caused narrowing of the airway. This is similar to appearance of 03/26/2020. Possible mild pharyngitis, tonsillitis. She also had out patient lab work tested. Her B. henselae titers seem to be negative so far. Her syphilis screen was negative, HIV screen was negative. Toxoplasma screen came positive for IgM and negative for IgG. ID want to recheck it before plan for any treatment. In the ER currently received Unasyn, Decadron, IV Benadryl, and IV famotidine. Currently, swelling seems to be much improved and she was able to swallow popsicle, but she still has blurred vision in the right eye.Complains of eye pain and burning pain in the face. There is no redness seen in the right eye. She has some mild redness of the face, more on the right side. Hemodynamically stable, afebrile, saturating fine in the room air. No leukocytosis. ESR is 25. Rest of the labs are okay. She says she has had some chest pain before, but it got resolved with sucralfate. Denies any shortness of breath. Has some headache. Currently no nausea. Normal bowel and bladder movements. No abdominal pain. Otherwise, she ambulates fine. ALLERGIES: LATEX, BACTRIM, CIPRO, CEPHALOSPORINS, CHLORPHENIRAMINE, PROPOXYPHENE, QUINOLONES, LATEX, NOVOCAIN, PERCOCET, PERCODAN, PROPOXYPHENE, TUSSIN, MACROBID, BEE VENOM, CLARITHROMYCIN. PAST MEDICAL HISTORY: As mentioned above. PAST SURGICAL HISTORY: Dilatation and curettage, hysterectomy, hysteroscopy, laparoscopic endometriosis, removal of kidney stone, tonsillectomy. MEDICATIONS: The patient is on albuterol 2 puffs inhalation q. 6 hours p.r.n., diclofenac sodium 75 mg, fluoxetine 80 mg p.o. a.m., Ativan 1-2 mg p.o. at bedtime, meclizine 25 mg p.o. t.i.d. p.r.n., modafinil 200 mg p.o. b.i.d., multivitamin 1 tablet daily, propranolol 40 mg p.o. daily, sodium chloride 1 g daily, sucralfate 1 g p.o. at bedtime, topiramate 100 mg p.o. b.i.d. FAMILY HISTORY: Significant for father had lung cancer, mets to liver, brain and spine, alcoholism; mother had ovarian cancer and leukemia, heart attack; daughter has allergies; maternal grandmother had cervical cancer; paternal grandmother had pancreatic cancer; maternal grandfather has hypertension; maternal grandmother has allergies and hypertension. SOCIAL HISTORY: , lives with the family. No smoking, no alcohol, no drug use. REVIEW OF SYSTEMS: As per HPI. Rest of review of systems negative. PHYSICAL EXAMINATION: GENERAL: The patient is obese, not in acute distress. VITAL SIGNS: Temperature 37, pulse 70, respiratory rate 16, blood pressure 124/74, oxygen 94% on room air. HEENT: No pallor, no icterus. Pupils equal, round, reactive to light. Some blurred vision in the right eye as per the patient. Some mild erythema seen on the face involving mostly the cheeks and forehead and chin region, slightly more prominent on the right side. No swelling of the eyes or erythema of the eyes or red eye seen. NECK: No JVD, no neck masses. CARDIOVASCULAR: S1, S2 heard, regular rate and rhythm, no murmur, no gallop. RESPIRATORY SYSTEM: Normal AP diameter. No accessory muscle use. No wheezing, no crackles. ABDOMEN: Soft, bowel sounds present, nontender. No distention. CENTRAL NERVOUS SYSTEM: Cranial nerves II through XII grossly intact, nonfocal. EXTREMITIES: No edema, no erythema. LABORATORY DATA: WBC 7.8, hemoglobin 11.9, hematocrit 36.8, platelets 249. ESR 25. Sodium 140, potassium 4, chloride 107, bicarbonate 29, BUN 15, creatinine 0.66, serum glucose 81, calcium 8.8, magnesium 2.4, total bilirubin 0.2, AST 13, ALT 19, alkaline phosphatase 65. C-reactive protein 0.49, total protein 6.9, lipase 81. TSH 3.12. Urinalysis negative. IMAGING DATA: CT of the head, no acute intracranial abnormalities seen. Soft tissue CT of the neck, mild bilateral periorbital and premalar soft tissue inflammation, right greater than left, correlate clinically for evidence of mild bilateral periorbital facial cellulitis. The bony orbits are intact and orbital contents are normal in appearance. The inflammatory process identified in the right posterior neck seen on 03/26/2020 has resolved. There is enlargement of the palatine and lingual tonsils which caused narrowing of the airway. This is similar in appearance to 03/26/2020. Correlate for evidence of mild pharyngitis, tonsillitis. ASSESSMENT AND PLAN: This is a 45-year-old female who presents with facial swelling, some difficulty swallowing, and some right eye blurred vision. The patient is having ongoing symptoms since last February when she had right lower extremity cellulitis, then she had infection of the right side of the neck region. Recently completed azithromycin for possible cat-scratch disease. 1. Possible facial cellulitis of the face and she also has some mild difficulty swallowing and CAT scan is showing possible periorbital cellulitis and possible mild pharyngotonsillitis. The patient has multiple allergies. The patient was taking azithromycin for possible cat-scratch disease for 10 days and today was the last day, which she did not take. Could be allergic reaction. The patient received Decadron, IV Benadryl, IV Pepcid and Unasyn. in the ER. Swelling of the face improved. Still has some erythema and complains of pain .. We will treat for possible cellulitis and mild tonsillitis with IV Unasyn. The patient also had some periauricular lymphadenopathy and inflammatory process in the right posterior neck since mid March, which was treated with antibiotics initially with couple of courses of doxycycline and then Rocephin, which seemed to improve, but then got worse and seen ID on 04/13/2020 and prescribed azithromycin for possible cat scratch disease.. She states the symptoms are much improved and on the CAT scan today also it seems those inflammatory processes are resolved. But now came with current facial cellulitis and facial swelling. Dick ID also did cat-scratch studies, which came back negative, but her toxoplasma IgM came back positive and IgG negative. As per the patient, ID recommended to repeat the toxoplasmosis studies before starting any kind of treatment. Will order Toxoplasmosis studies. Toxoplasmosis also sometimes can cause uveitis, but there is no obvious inflammation of the eye. There was a complaint of some blurred vision. Consulted and notified ophthalmology - will be evaluated. May consider consulting Dick [facility]S in a.m. for further recommendations. We will place on IV fluids. We will keep on clear liquid food for now and continue with Claritin, Pepcid, and IV Solu-Medrol for possible allergic reaction and closely monitor in the medical floor. 2. History of postural orthostatic tachycardia syndrome, on salt tablets. 3. History of gastroesophageal reflux disease, continue sucralfate. 4. History of anxiety and depression. Continue Ativan and fluoxetine. 5. History of generalized anxiety disorder and social anxiety disorder. Continue propranolol. 6. Migraines. Continue topiramate. 7. History of impaired fasting glucose. We will monitor the blood sugar. We will follow the HbA1c levels. 8. Deep venous thrombosis prophylaxis, sequential compression devices for now. 9. Sleep apnea. Continue CPAP. We will closely monitor. DISPOSITION: Admit to medical floor. Expect to discharge home and follow with family doctor. Level 1 full code. MTDD
[2020-04-23] MEDS: AMPICILLIN/SULBACTAM SOD 3,000 MG in 0.9 % SODIUM CHLORIDE 100 ML IV SCH ×4 (05:24→23:29)
[2020-04-23] MEDS: TOPIRAMATE 100 MG TAB PO SCH ×2 (05:34→14:04)
[2020-04-23 07:24] LABS: Hematocrit (blood only) 37.7 % (37-47); Hemoglobin 12.3 g/dL (12.0-16.0); Immature Granulocytes # (auto) 0.06 K/uL (0.00-0.02); Immature Granulocytes % (auto) 0.6 %; Lymphocytes # (auto) 0.95 K/uL (1.2-3.4); Mean Corpuscular Hemoglobin 29.4 pg (25-34); Mean Corpuscular Hgb Conc 32.6 g/dL (32-36); Mean Platelet Volume 11.3 fL (7.4-10.4); Monocytes # (auto) 0.05 K/uL (0.11-0.59); Monocytes % (auto) 0.5 %; Neutrophils # (auto) 8.47 K/uL (1.4-6.5); Neutrophils % (auto) 88.9 %; Platelet Count 273 K/uL (130-400); RDW Coefficient of Variation 14.3 % (11.5-14.5); RDW Standard Deviation 46.7 fL (36.4-46.3); Red Blood Count 4.19 M/uL (4.2-5.4); White Blood Count 9.53 K/uL (4.8-10.8)
[2020-04-23 07:36] LABS: Estimated Average Glucose 117 mg/dl; Hemoglobin A1C 5.7 % (4.5-5.6)
[2020-04-23 08:07] LABS: BUN Creatinine Ratio 15.2 (10-20); Calcium 8.6 mg/dl (8.5-10.1); Est GFR (African American) 102.4; Est GFR (Non-African American) 88.3; Magnesium 2.3 mg/dl (1.8-2.4); Potassium 3.9 mmol/L (3.5-5.1)
[2020-04-23] MEDS ORDERED: methylPREDNISolone 60 MG in SYRINGE 0 ML IV SCH (09:00)
[2020-04-23] MEDS ORDERED: methylPREDNISolone 125 MG/2 ML VIAL IV SCH (09:00)
[2020-04-23] MEDS: SUCRALFATE 1 GM TAB PO SCH ×4 (10:02→21:01)
[2020-04-23] MEDS: MULTIVITAMIN TAB PO SCH (10:03)
[2020-04-23] MEDS: PROPRANOLOL HCL 20 MG TAB PO SCH (10:03)
[2020-04-23] MEDS: FLUoxetine HCL 20 MG CAP PO SCH (10:04)
[2020-04-23] MEDS: SODIUM CHLORIDE 1 GM TABLET PO SCH (10:04)
[2020-04-23] MEDS: CETIRIZINE HCL 10 MG TABLET PO SCH (10:04)
[2020-04-23] MEDS: FAMOTIDINE 20 MG in SYRINGE 3 ML IV SCH ×2 (10:05→21:04)
--- NOTE | 2020-04-23 10:05 | Hospitalist Progress Note ---
Date of Service April 23, 2020 Assessment & Plan (1) Facial pain: periorbital/facial cellulitis -As per ED notes on 04/22/2020 that "This is a 45-year-old female that presents to the emergency department via private vehicle with complaints of "swollen face, eyes blurry, cannot swallow". The patient states that she had a bite on the right calf region in late February of this year. She was treated with doxycycline for suspected cellulitis. She then notes that Mar 25 of this year she developed a lump behind the right ear. She was once again placed on doxycycline and notes that she had a CT scan performed of the area. She has since then followed up with the PCP as well as infectious disease. She notes that she did have a positive toxoplasmosis IgM but will need to have another 1 to confirm this. She notes persistent swelling to the right side of the face that has not improved much. The patient notes that she is currently on azithromycin and the last dose was to be today but could not tolerate this noting that she had trouble swallowing. She notes that when she awoke today she had swelling to the right side of the face which is worse than what she had before and also notes pain into the right ear, and right eye. She also notes right eye blurriness. She notes that the pain in the right eye is also with movement." -review of outpatient notes with [facility] that patient has been imaged extensively with CT scans in recent past and follows with Dr. Dao Calhoun MD (Infectious Diseases) -outpatient CT Neck with contrast on 04/12/2020: Right posterior cervical triangle and right upper cervical chain lymphadenopathy, with mild soft tissue stranding along the right side of the neck, most suggestive of an underlying infection. No evidence of rim enhancing fluid collection that would suggest an abscess.Bilateral prominent lingual tonsils, stable -outpatient CT Chest/Abdomen with Contrast: No acute abnormality of the chest, abdomen, or pelvis. Findings suggestive of gastroesophageal reflux. Nonobstructive right nephrolithiasis. Left adnexal cyst. -on this hospital presentation on 04/22/2020, Head CT without contrast: No acute intracranial abnormality. Soft Tissue Neck CT 1. There is mild bilateral periorbital and premalar soft tissue inflammation, right greater than left. Correlate clinically for evidence of mild bilateral periorbital/facial cellulitis. 2. The bony orbits are intact and orbital contents are normal in appearance. 3. The inflammatory process identified in the right posterior neck seen on 03/26/2020 has resolved. 4. There is enlargement of the palatine and lingual tonsils which cause narrow ing of the airway. This is similar in appearance to 03/26/2020 examination. -as per admitting hospitalist Amna Velasquez "The patient has multiple allergies. The patient was taking azithromycin for possible cat-scratch disease for 10 days and today was the last day, which she did not take. Could be allergic reaction. The patient received Decadron, IV Benadryl, IV Pepcid and Unasyn. in the ER. Swelling of the face improved. Still has some erythema and complains of pain . We will treat for possible cellulitis and mild tonsillitis with IV Unasyn. The patient also had some periauricular lymphadenopathy and inflammatory process in the right posterior neck since mid March, which was treated with antibiotics initially with couple of courses of doxycycline and then Rocephin, which seemed to improve, but then got worse and seen ID on 04/13/2020 and prescribed azithromycin for possible cat scratch disease. She states the symptoms are much improved and on the CAT scan today also it seems those inflammatory processes are resolved. But now came with current facial cellulitis and facial swelling. [place] ID also did cat-scratch studies, which came back negative, but her toxoplasma IgM c marcello back positive and IgG negative. As per the patient, ID recommended to repeat the toxoplasmosis studies before starting any kind of treatment. Will order Toxoplasmosis studies. Toxoplasmosis also sometimes can cause uveitis, but there is no obvious inflammation of the eye. There was a complaint of some blurred vision." -Dr. Velasquez consulted and notified ophthalmology for inpatient evaluation -Patient given IV fluids. continue with Claritin, Pepcid, and IV Solu-Medrol 60 mg IV daily for possible allergic reaction and closely monitor in the medical floor. Patient continued on IV Unasyn (2) Tenderness of neck: -liquid diet as above -patient denies food allergies despite multiple antibiotic allergies listed. she reports she has seen broke man and rule out food allergies (3) Blurred vision, right eye: -history as above, ophthalmology for inpatient evaluation (4) Migraine: -history of migraine headache -continue home dose topiramate 1000 mg BID -there is prn pain medications -can consider role of Brain MRI imaging for further diagnostics as patient has had other CT scans of head/neck -consult neurology if any possible contribution of migraine to facial pain and occular symptoms History of anxiety and depression. History of generalized anxiety disorder and social anxiety disorder. -Continue Ativan and fluoxetine. -Continue propranolol History of postural orthostatic tachycardia syndrome (POTS) -on salt tablets 1000 mg daily -serum sodium is normal Sleep apnea -CPAP qhs Gastroesophageal reflux disease -continue sucralfate. HbA1c levels is 5.7, no diabetes Deep venous thrombosis prophylaxis -sequential compression devices for Full Code Admission and Anticipated Discharge Date Admission Date: April 23, 2020 Subjective Patient is not in acute distress. She has been ambulatory. She reports of headache. She reports that the right eye is more blurred in vision compared to the left. There is no gross edema or erythema of the face, but patient reports that the palpation of the neck and face causes pain sensitivity. Review of Systems Review of Systems: All systems reviewed & are unremarkable except as noted in Subjective Physical Exam Constitutional: cooperative Eyes: EOM intact bilaterally pupils bilaterally appears mildly responsive to light, normal appearance of conjunctiva/sclera ENMT: external ear and nose normal, oropharynx normal Neck: + neck tender Respiratory: normal respiratory effort, lungs clear to auscultation Cardiovascular: Rate/Rhythm: regular rate Gastrointestinal (Abdomen): normal bowel sounds, soft, nontender, no hepatosp lenomegaly Musculoskeletal: Head/Neck/Chest: normocephalic and head atraumatic Neurologic: PERRL, EOMI, accommodation nl, no face palsy, no dysarthria moves all extremities Psychiatric: A+Ox3, euthymic affect Results & Data Results & Data ([facility]) Vital Signs (Past 12 Hours) Vital Signs Temp Pulse Resp BP BP Pulse Ox 04/23/20 06:44 36.5 C 64 19 114/75 92 04/23/20 01:56 71 110/69 04/23/20 01:02 36.6 C 72 14 150/95 H 95 04/23/20 00:22 37.0 C 70 16 124/74 94 04/22/20 23:07 63 18 137/88 99
[2020-04-23] MEDS ORDERED: HYDROmorphone INJ 0.5 MG/0.5 ML SYR IV PRN (10:24)
[2020-04-23] MEDS ORDERED: GLUCOSE 10 TABS/TUBE PO PRN (11:57)
[2020-04-23] MEDS ORDERED: DEXTROSE 50% 50 ML SYRINGE IV PRN (11:57)
[2020-04-23] MEDS ORDERED: GLUCAGON FOR INJ 1 MG VIAL SQ PRN (11:57)
[2020-04-23] MEDS ORDERED: GLUCOSE 40% GEL 15 GM TUBE PO PRN (11:57)
[2020-04-23] MEDS ORDERED: CARBOHYDRATES FOR HYPOGLYCEMIA PO PRN (11:57)
[2020-04-23] MEDS: LORazepam 0.25 MG/0.5 ML VIAL IV PRN (14:04)
[2020-04-23] MEDS ORDERED: GADOBUTROL 65ML VIAL IV ONE (14:50)
[2020-04-23] MEDS: methylPREDNISolone 1,000 MG in DEXTROSE 5% 250 ML IV SCH (15:12)
--- NOTE | 2020-04-23 15:12 | Magnetic Resonance Report ---
MRI OF THE BRAIN WITHOUT AND WITH IV CONTRAST CLINICAL HISTORY: Migraines, blurry vision, right-sided facial pain, possible optic neuritis. COMPARISON STUDY: Noncontrast CT scan dated 04/22/2020, MRI the brain dated 09/19/2012 TECHNIQUE: MRI of the brain was performed from the vertex to the skull base utilizing various T1 and T2 weighted sequences. Following the IV administration of 11.5 mL of Gadavist contrast, additional en hanced images were obtained. FINDINGS: Sagittal T1, axial diffusion, proton density and T2 weighted axial, coronal FLAIR, and pre and post a xial T1-weighted images were acquired. These were supplemented with post gadolinium coronal T1 weight ed images. No intra or extra-axial mass lesions are visualized. Axial diffusion-weighted images reveal no evidence of acute or subacute infarction. There is no evidence of ventricular dilatation. Proton density T2-weighted and FLAIR images reveal a few foci of increased T2 signal within the white matter. These are nonspecific, and could be related to chronic headaches, small vessel disease, or l ess likely a demyelinating process. There are new compared the prior 2012 study. There are no abnormal flow voids. There is no evidence of pathologic enhancement. No optic nerve abnormalities are visualized on MRI sc anning. IMPRESSION: 1. No evidence of intracranial mass 2. No evidence of acute or subacute infarction 3. There are few nonspecific foci of increased T2 and FLAIR signal within the white matter. ACT 112: Negative or not required by law. Electronically signed by: John Callahan M.D. 04/23/2020 3:10 PM
--- NOTE | 2020-04-23 15:56 | Communication Note ---
Date of Service: April 23, 2020 Dee is 45 years old is a patient of Dr. Ezequiel Jang at [facility], and seen ISAC Smith for chronic migraine headaches in the past and is on Topamax and has a host of medical problems as outlined on her chart including depression, PCO S, p.o. TS, migraine with aura often of the visual type with scintillating phenomena, endometriosis, obstructive sleep apnea on CPAP, renal calculi, hypokalemia, and has had a laparoscopy D&C tonsillectomy at home is on a number of chronic medications in addition to the Topamax 100 mg twice a day which include albuterol fluoxetine as needed lorazepam, meclizine, modafinil, multivitamins, propranolol, sodium chloride, sucralfate, and has a host of allergies to latex Bactrim Cipro ciprofloxacin and sulfa methoxazole chlorpheniramine propoxyphene quinolones and trimethoprim In this setting she has had issues since February with cellulitis requiring doxycycline and steroids involving the right lower extremity then developed right posterior neck pain and was found to have some lymphadenopathy or at least some inflammatory foci on imaging studies and has been on a series of antibiotics and steroids alternating between doxycycline, azithromycin, I believe several doses of ceftriaxone and has been seen by multiple specialists most recently infectious disease at [place] and has had a host of laboratory studies done almost all of which are negative including C-reactive protein sed rate JAYLA rheumatoid factor but there is a slightly high toxoplasmosis titer which may be spurious clinical impression is that of possible cat scratch disease She was felt to need inpatient hospitalization for protracted intravenous antibiotics but insurance does not approve this and she is been treated by periodic outpatient pulses of antibiotics and steroids and recently was improved but then awakened at 2 AM with swelling of her throat to the point that she had trouble swallowing, bi facial swelling worse in the right periorbital region, a papular rash involving all of her face and monocular visual blurring on the right Repeat CT scans showed no central nervous system abnormalities and the soft tissue swelling in the right suboccipital region was improved but there may have been some mild orbital edema and edema of the soft palate regions She was given steroids more antibiotics has improved but the vision continues to be blurry and throughout although she has had a marked increase in her migraines but she insists she is never had a migrainous aura characterized by monocular visual loss She has been seen by ophthalmology. The note is not yet typed but upon discussion with Dr. Maciel her attending physician a diagnosis of possible optic neuritis is being considered An MRI scan has been done with and without contrast and shows only a few low- grade nonspecific high T2 intensity signals which are slightly increased from those noted in 2013 but do not enhance probably due to her frequent migraines rather than anything else and there is no enhancement of the right optic nerve which of course is exclude optic neuritis but also does not support and no meningeal enhancement is described Family history social history are all as recorded on the EMR Review of systems besides the history of present illness really is pretty unremarkable without any significant weight loss or weight gain but with intermittent fevers the cervical pain the "cellulitis" of her right leg and the increased headaches which probably correlate with her febrile activity and the fluctuating dose of steroids she has had no real new cardiovascular pulmonary gastrointestinal genitourinary musculoskeletal dermatologic or hematologic issues and with exception of the right monocular visual blurring has had no new issues referable to the head eyes ears nose and throat On exam her blood pressure is 114/75 pulse 64 respirations 19 she is afebrile O2 saturations 92 she is awake alert oriented in 3 spheres with no cranial deformities. I am not that impressed with any facial edema eye movements are normal subjective visual acuity in the right eye is reduced and my image is blurry but I am not impressed with a relative afferent pupillary defect today and gross visual field testing to confrontation is normal. Facial tone and strength of sensation is normal speech is clear she moves all extremities well there is no tremor or tics choreiform activity strength testing is grossly intact toes are down sensation is normal This may well be an optic neuritis and it may well be part of a cat scratch disease spectrum but we may have to consider lumbar puncture to search for other inflammatory markers within the central nervous system and for evidence for primary demyelinating disorder. She has been worked up for lupus rheumatoid arthritis other vasculitides, has a normal sed rate and CRP so it is very hard for me to postulate another causative process other than the presumptive cat scratch disease spectrum for which she really has not been completely treated I discussed the possibility of a lumbar puncture with her today I think she would be amenable to having this done under fluoroscopy. My suggestions would be to continue her current course of IV Solu-Medrol for the presumptive diagnosis of optic neuritis, and arrange for her to have the spinal fluid done under fluoroscopy on Saturday. The fluid should be sent for routine cell count protein glucose cytology cultures Holly ink preparation AFB smear and culture and for multiple sclerosis profile including oligoclonal proteins, myelin basic protein, IgG synthetic rate and I would add a Lyme antibody even though her serum Lyme titer is been negative. She may also benefit from having a serologic work-up for neuromyelitis optica with an appropriate antibody panel and she should have an angiotensin-converting enzyme level as well. Some of these latter studies could be done through the [facility] outpatient labs and frankly I think this would be best as in the values would be on her [facility] system chart and not difficult to find. Frankly I suspect we are not going to find any evidence for an underlying demyelinating disorder and at this optic neuritis if indeed this is what she has is part of this is yet unexplained systemic and presumptive infectious illness with cat scratch disease being the leading candidate If we do go ahead with the spinal fluid I would suggest that infectious disease be contacted to see if they would have any specific studies they would want on the fluid as part of the work-up for her current illness I will check back tomorrow either with a visit or by chart rounds and will be in contact with Dr. Raheem Weston MD
--- NOTE | 2020-04-23 16:36 | Consultation Report ---
DATE OF CONSULTATION: 04/23/2020 CHIEF COMPLAINT/HISTORY OF PRESENT ILLNESS: This is a 45-year-old female with a medical history of autonomic dysfunction polycystic ovarian syndrome, impaired fasting glucose, hypothyroidism, sleep apnea, migraines, anxiety and obesity who presented to the [facility] Emergency Department yesterday for evaluation of right facial/eyelid swelling, right eye pain, blurry vision and difficulty swallowing that started yesterday morning when she woke up. She has been having right neck swelling and lymphadenopathy recently that has been evaluated by her primary medical doctor and an infectious disease specialist at [facility] with a possible differential diagnosis of toxoplasmosis or cat-scratch disease. She has been treated with doxycycline, oral prednisone, ceftriaxone, cephalexin, and was finishing a 10-day course of azithromycin when her symptoms prompting her admission started. She states that she woke up Saturday with the right side of her face with a bumpy rash. She had swelling of her right eyelid and she was having difficulty swallowing. When she was in the Emergency Department, she had a CT of the head and neck that showed bilateral periorbital and premalar soft tissue swelling and inflammation. She had also had some recent blood work done including Bartonella henselae titers which were negative and her toxoplasmosis screen was positive for IgM but negative for IgG. She states today that her vision still seems blurry in the right eye and has not significantly improved since yesterday morning. She does have pain when she moves her eye into extreme gazes. Her left eye seems to be doing normal at this time. Her ocular history is remarkable for intermittent pupil size changes and intermittent blurry vision, which she believes is secondary to her dysautonomia. PAST MEDICAL HISTORY: Polycystic ovarian syndrome, impaired fasting glucose, hypothyroidism, obstructive sleep apnea, obesity, migraines, autonomic dysfunction, anxiety. PAST SURGICAL HISTORY: Dilation and curettage, hysterectomy, tonsillectomy, kidney stone removal. MEDICATIONS: Albuterol, meclizine, diclofenac, modafinil, fluoxetine, topiramate, Ativan. ALLERGIES: SHE HAS MULTIPLE ALLERGIES INCLUDING BACTRIM, OFLOXACIN, CEPHALOSPORINS, QUINOLONES LATEX. You can see her H and P for the full list. FAMILY HISTORY: Remarkable for lung cancer, ovarian cancer, cervical cancer and leukemia. SOCIAL HISTORY: She is and a nonsmoker. PHYSICAL EXAMINATION: Her visual acuity with her glasses at near is 20/40 in the right eye and 20/25 in the left eye. Her pupils are both 5 mm and reacted down to 3 mm. There is no afferent pupillary defect noted in the right eye. Her intraocular pressure was 22 in the right eye and 19 in the left eye. Her confrontational visual haley were full in both eyes. Her extraocular movements were full in both eyes, but she reported pain with movement of her right eye. Her red desaturation test was mildly positive on the right eye. Externally, she has mild erythema and a papular rash on both sides of the face and malar area and around the right eye. She has only very very mild swelling of her right upper lid at this point. Her conjunctiva and sclerae are white and quiet in both eyes. Her corneas appear clear in both eyes. Her anterior chamber is deep and formed bilaterally. Her irises are round with no defects noted and her lenses appeared clear. Her dilated fundus exam on the right shows a cup-to-disc ratio of 0.3. The macula looks normal with no signs of bleeding or swelling. Her peripheral retina is flat and attached for 360 degrees. The dilated exam in her left eye shows a cup-to-disc ratio of 0.3. The macula and peripheral retina appear normal as well. ASSESSMENT AND PLAN: Right eye pain and pain with eye movements. There is no intraocular inflammation noted in the right eye on exam today. The differential diagnosis includes preseptal cellulitis, allergic reaction and optic neuritis. The patient is already receiving IV Decadron and getting IV Unasyn. I did speak with the primary team physician, Dr. Maciel, and discussed increasing her IV steroid dose to treat for possible optic neuritis given her pain with eye movements and mild decrease in vision. It was also recommended he consider getting an MRI of the brain and orbits with contrast and fat suppression to look for the possibility of a posterior optic neuritis. The patient does say that she already has an appointment with her primary stretching machine tender frame on Saturday of this week. I have recommended that if she should be discharged before then to keep the appointment to have her recheck of her vision and also do formal visual field testing at that point to see if there is any significant peripheral vision loss noted. She is also welcome to follow- up with our office should she choose to do so. Thank you for this consult. LYUDMILA
[2020-04-23] MEDS: INSULIN ASPART 100 UNITS/ML 3 ML PEN SC SCH ×2 (17:18→21:54)
[2020-04-23] MEDS: LORazepam 1 MG TAB PO SCH (21:01)
[2020-04-23] MEDS: MELATONIN 3 MG TAB PO PRN (21:01)
[2020-04-23] MEDS ORDERED: CALCIUM CARBONATE 500 MG CHEWABLE TAB PO PRN (22:21)
[2020-04-24] MEDS: AMPICILLIN/SULBACTAM SOD 3,000 MG in 0.9 % SODIUM CHLORIDE 100 ML IV SCH ×4 (05:50→23:38)
[2020-04-24 06:23] LABS: Hematocrit (blood only) 37.2 % (37-47); Hemoglobin 12.2 g/dL (12.0-16.0); Immature Granulocytes % (auto) 0.8 %; Lymphocytes % (auto) 10.5 %; Mean Corpuscular Hemoglobin 29.7 pg (25-34); Mean Corpuscular Hgb Conc 32.8 g/dL (32-36); Mean Corpuscular Volume 90.5 fL (80-100); Mean Platelet Volume 11.2 fL (7.4-10.4); Monocytes # (auto) 0.09 K/uL (0.11-0.59); Monocytes % (auto) 0.7 %; Neutrophils # (auto) 10.84 K/uL (1.4-6.5); Platelet Count 271 K/uL (130-400); RDW Coefficient of Variation 14.6 % (11.5-14.5); RDW Standard Deviation 47.8 fL (36.4-46.3); Red Blood Count 4.11 M/uL (4.2-5.4); White Blood Count 12.33 K/uL (4.8-10.8)
[2020-04-24 06:49] LABS: BUN Creatinine Ratio 15.8 (10-20); Calcium 8.4 mg/dl (8.5-10.1); Creatinine Clr Calc Pharmacy 96.9 ml/min; Est GFR (African American) 87.8; Est GFR (Non-African American) 75.7; Potassium 3.8 mmol/L (3.5-5.1)
[2020-04-24 06:52] LABS: Albumin Globulin Ratio 0.7 (0.9-2); Bilirubin,Total 0.3 mg/dl (0.2-1); Globulin 4.2 gm/dl (2.5-4.0); Total Protein 7.2 gm/dl (6.4-8.2)
[2020-04-24] MEDS: INSULIN ASPART 100 UNITS/ML 3 ML PEN SC SCH ×4 (08:51→21:57)
[2020-04-24] MEDS: FLUoxetine HCL 20 MG CAP PO SCH (08:55)
[2020-04-24] MEDS: SUCRALFATE 1 GM TAB PO SCH ×4 (08:55→21:04)
[2020-04-24] MEDS: MULTIVITAMIN TAB PO SCH (08:56)
[2020-04-24] MEDS: PROPRANOLOL HCL 20 MG TAB PO SCH (08:56)
[2020-04-24] MEDS: SODIUM CHLORIDE 1 GM TABLET PO SCH (08:56)
[2020-04-24] MEDS: TOPIRAMATE 100 MG TAB PO SCH ×2 (08:57→13:44)
[2020-04-24] MEDS: CETIRIZINE HCL 10 MG TABLET PO SCH (08:57)
[2020-04-24] MEDS: FAMOTIDINE 20 MG in SYRINGE 3 ML IV SCH ×2 (09:04→21:04)
--- NOTE | 2020-04-24 10:24 | Hospitalist Progress Note ---
Date of Service April 24, 2020 Assessment & Plan (1) Facial pain: periorbital/facial cellulitis -As per ED notes on 04/22/2020 that "This is a 45-year-old female that presents to the emergency department via private vehicle with complaints of "swollen face, eyes blurry, cannot swallow". The patient states that she had a bite on the right calf region in late February of this year. She was treated with doxycycline for suspected cellulitis. She then notes that Mar 25 of this year she developed a lump behind the right ear. She was once again placed on doxycycline and notes that she had a CT scan performed of the area. She has since then followed up with the PCP as well as infectious disease. She notes that she did have a positive toxoplasmosis IgM but will need to have another 1 to confirm this. She notes persistent swelling to the right side of the face that has not improved much. The patient notes that she is currently on azithromycin and the last dose was to be today but could not tolerate this noting that she had trouble swallowing. She notes that when she awoke today she had swelling to the right side of the face which is worse than what she had before and also notes pain into the right ear, and right eye. She also notes right eye blurriness. She notes that the pain in the right eye is also with movement." -review of outpatient notes with [facility] that patient has been imaged extensively with CT scans in recent past and follows with Dr. Dao Calhoun MD (Infectious Diseases) -outpatient CT Neck with contrast on 04/12/2020: Right posterior cervical triangle and right upper cervical chain lymphadenopathy, with mild soft tissue stranding along the right side of the neck, most suggestive of an underlying infection. No evidence of rim enhancing fluid collection that would suggest an abscess.Bilateral prominent lingual tonsils, stable -outpatient CT Chest/Abdomen with Contrast: No acute abnormality of the chest, abdomen, or pelvis. Findings suggestive of gastroesophageal reflux. Nonobstructive right nephrolithiasis. Left adnexal cyst. -on this hospital presentation on 04/22/2020, Head CT without contrast: No acute intracranial abnormality. Soft Tissue Neck CT 1. There is mild bilateral periorbital and premalar soft tissue inflammation, right greater than left. Correlate clinically for evidence of mild bilateral periorbital/facial cellulitis. 2. The bony orbits are intact and orbital contents are normal in appearance. 3. The inflammatory process identified in the right posterior neck seen on 03/26/2020 has resolved. 4. There is enlargement of the palatine and lingual tonsils which cause narrow ing of the airway. This is similar in appearance to 03/26/2020 examination. -as per admitting hospitalist Amna Velasquez "The patient has multiple allergies. The patient was taking azithromycin for possible cat-scratch disease for 10 days and today was the last day, which she did not take. Could be allergic reaction. The patient received Decadron, IV Benadryl, IV Pepcid and Unasyn. in the ER. Swelling of the face improved. Still has some erythema and complains of pain . We will treat for possible cellulitis and mild tonsillitis with IV Unasyn. The patient also had some periauricular lymphadenopathy and inflammatory process in the right posterior neck since mid March, which was treated with antibiotics initially with couple of courses of doxycycline and then Rocephin, which seemed to improve, but then got worse and seen ID on 04/13/2020 and prescribed azithromycin for possible cat scratch disease. She states the symptoms are much improved and on the CAT scan today also it seems those inflammatory processes are resolved. But now came with current facial cellulitis and facial swelling. [place] ID also did cat-scratch studies, which came back negative, but her toxoplasma IgM c marcello back positive and IgG negative. As per the patient, ID recommended to repeat the toxoplasmosis studies before starting any kind of treatment. Will order Toxoplasmosis studies. Toxoplasmosis also sometimes can cause uveitis, but there is no obvious inflammation of the eye. There was a complaint of some blurred vision." -Dr. Velasquez consulted and notified ophthalmology for inpatient evaluation. Patient given IV fluids. continue with Claritin, Pepcid, and IV Solu-Medrol 60 mg IV daily -the solumedrol increased to 1000 mg IV x 3 days starting on 04/23/2020 as recommended by ophthalmology Dr. Aaron after bedside eye evaluation in case of optic neuritis. Brain MRI with contrast did not find evidence by imaging of optic neuritis (but There are few nonspecific foci of increased T2 and FLAIR signal within the white matter). Neurology Dr. Weston recommends lumbar puncture to rule etiologies including multiple sclerosis -continue IV antibiotics for now, patients WBC on 04/24/2020 are rising likely from the steroids; as per hospitalist subjective assessment on 04/24/20: "Patient has been ambulatory. no falls. reports her swallowing since yesterday has improved significantly. still with blurred vision of right eye. without being asked or prompted, she complains that objects that are red like the garbage bin is really bothering her but she cannot describe if it is a discoloration. she denies family history of multiple sclerosis" (2) Tenderness of neck: -patient reports that the high dose 1000 mg IV solumedrol on 04/23/20 helped resolve throat pain and has been tolerating solid diet since that time -patient denies food allergies despite multiple antibiotic allergies listed. she reports she has seen production laborer and rule out food allergies (3) Blurred vision, right eye: -the solumedrol increased to 1000 mg IV x 3 days starting on 04/23/2020 as recommended by ophthalmology Dr. Aaron after bedside eye evaluation in case of optic neuritis. Brain MRI with contrast did not find evidence by imaging of optic neuritis (but There are few nonspecific foci of increased T2 and FLAIR signal within the white matter). Neurology Dr. Weston recommends lumbar puncture to rule etiologies including multiple sclerosis -possible for lumbar puncture to take place under fluroscopy with radiology on Saturday04/25/2020 -patient also has a prior scheduled appointment with her usual outpatient ophthalmology on 04/26/2020 at 11 AM (4) Migraine: -history of migraine headache -continue home dose topiramate 1000 mg BID -there is prn pain medications History of anxiety and depression. History of generalized anxiety disorder and social anxiety disorder. -Continue Ativan and fluoxetine. -Continue propranolol History of postural orthostatic tachycardia syndrome (POTS) -on salt tablets 1000 mg daily -serum sodium is normal Sleep apnea -CPAP qhs Gastroesophageal reflux disease -continue sucralfate. HbA1c levels is 5.7, no diabetes, patient on sliding scale insulin while in the hospital because of effects of steroids on blood sugars Deep venous thrombosis prophylaxis -sequential compression devices for now, ambulation as tolerated Full Code Admission and Anticipated Discharge Date Admission Date: April 23, 2020 Subjective Patient has been ambulatory. no falls. reports her swallowing since yesterday has improved significantly. still with blurred vision of right eye. without being asked or prompted, she complains that objects that are red like the garbage bin is really bothering her but she cannot describe if it is a discoloration. she denies family history of multiple sclerosis no chest pain, no shortness of breath. breathing on room air. no dizziness. Review of Systems Review of Systems: All systems reviewed & are unremarkable except as noted in Subjective Physical Exam Constitutional: cooperative Eyes: EOM intact bilaterally pupils of both eyes with some reaction to light ENMT: external ear and nose normal, oropharynx normal Neck: normal visual inspection Respiratory: normal respiratory effort, lungs clear to auscultation Cardiovascular: Rate/Rhythm: regular rate Gastrointestinal (Abdomen): normal bowel sounds, soft, nontender, no hepatosplenomegaly Musculoskeletal: Head/Neck/Chest: normocephalic and head atraumatic Neurologic: PERRL, EOMI, accommodation nl, no face palsy, no dysarthria moves all extremities Psychiatric: A+Ox3, euthymic affect Results & Data Results & Data ([facility]) Vital Signs (Past 12 Hours) Vital Signs Temp Pulse Resp BP BP Pulse Ox 04/24/20 07:51 36.6 C 53 L 17 138/83 95 04/23/20 23:50 36.7 C 77 18 148/88 H 92
--- NOTE | 2020-04-24 11:44 | Communication Note ---
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 She is on steroids intravenously which will stop tomorrow at 1 g a day and will then should be on oral taper and she is completing her course of treatment for presumptive cat scratch disease He has no other neurologic symptoms or signs and with normal imaging studies I think we can defer on my recommendations to do a CT angiographic study of her vertebral system and carotid system She is on deck for a lumbar puncture tomorrow laboratory studies with Dr. Maciel. On an outpatient basis I probably will add an NMO panel do some outpatient imaging of the cervical spine and thoracic spine depending on what shows up on the spinal fluid analysis for the multiple sclerosis panel I will check back with her tomorrow and set up follow-up in our clinic in [facility] in about 2 weeks Lars Weston MD
[2020-04-24] MEDS: methylPREDNISolone 1,000 MG in DEXTROSE 5% 250 ML IV SCH (13:43)
[2020-04-24] MEDS: MELATONIN 3 MG TAB PO PRN (21:04)
[2020-04-24] MEDS: LORazepam 1 MG TAB PO SCH (21:04)
[2020-04-25] MEDS ORDERED: Nursing to Pharmacy Communication SCH ×2 (01:00→13:00)
[2020-04-25] MEDS: AMPICILLIN/SULBACTAM SOD 3,000 MG in 0.9 % SODIUM CHLORIDE 100 ML IV SCH ×4 (06:04→23:58)
[2020-04-25] MEDS: INSULIN ASPART 100 UNITS/ML 3 ML PEN SC SCH ×4 (06:10→22:58)
[2020-04-25] MEDS: MULTIVITAMIN TAB PO SCH (07:37)
[2020-04-25] MEDS: PROPRANOLOL HCL 20 MG TAB PO SCH (07:37)
[2020-04-25] MEDS: CETIRIZINE HCL 10 MG TABLET PO SCH (07:37)
[2020-04-25] MEDS: FLUoxetine HCL 20 MG CAP PO SCH (07:37)
[2020-04-25] MEDS: SODIUM CHLORIDE 1 GM TABLET PO SCH (07:37)
[2020-04-25] MEDS: SUCRALFATE 1 GM TAB PO SCH ×4 (07:37→20:30)
[2020-04-25] MEDS: TOPIRAMATE 100 MG TAB PO SCH ×2 (07:37→13:01)
[2020-04-25] MEDS: FAMOTIDINE 20 MG in SYRINGE 3 ML IV SCH (07:44)
--- NOTE | 2020-04-25 09:06 | Fluoroscopy Report ---
FL lumbar puncture diagnostic CLINICAL HISTORY: rule out demyelination, infectious process, headache and blurred vision. Possible o ptic neuritis. COMPARISON STUDY: None FLUOROSCOPY TIME: 18 seconds. NUMBER OF FLUOROSCOPIC IMAGES: 2 FINDINGS: A timeout was performed. The risks the procedure were explained the patient and informed consent was obtained. The patient was prepped and draped in sterile fashion. The skin was anesthetized with 1% lidocaine. Under fluoroscopic guidance, a lumbar puncture was performed at the L4-5 level utilizing a 20-gauge s atniya needle. The opening pressure was 28 cm H2O. 8 cc of clear CSF was withdrawn under gravity drip and into 4 tubes. This was sent for labo ratory analysis as specified by the referring clinician. There were no immediate complications. IMPRESSION: 1. Successful fluoroscopically guided diagnostic lumbar puncture performed at the L4-5 level 2. 8 cc of clear CSF was collected and sent for laboratory analysis 3. Opening pressure of 28 cm H2O ACT 112: Negative or not required by law. Electronically signed by: John Callahan M.D. 04/25/2020 9:04 AM
[2020-04-25] MEDS: ONDANSETRON INJ 2 MG/ML 2 ML VIAL IV PRN ×2 (09:08→17:02)
[2020-04-25 09:31] LABS: CSF Chemistry Tube # 1
[2020-04-25] MEDS ORDERED: HYDROmorphone INJ 0.5 MG/0.5 ML SYR IV STA ×2 (09:36→18:42)
[2020-04-25] MEDS ORDERED: SODIUM CHLORIDE 0.9% 1000ML 250 ML IV ONE ×2 (09:36→11:41)
[2020-04-25 09:43] LABS: CSF Glucose 101 mg/dl (40-70); Total Protein CSF 31.7 mg/dl (15-45)
[2020-04-25 09:47] LABS: Appearance CSF Clear; CSF Count Tube # 3; CSF Xanthrochromic No xanthochromia; Color CSF Colorless
[2020-04-25 09:48] LABS: Red Blood Cell CSF (A) 0 /uL (0-); Red Blood Cell CSF (B) 0 /uL (0-); White Blood Cell CSF (A) 3 /uL (0-5); White Blood Cell CSF (B) 3 /uL (0-5)
[2020-04-25] MEDS ORDERED: NITROGLYCERIN 2% OINTMENT 30GM TUBE EXT ONE (09:54)
[2020-04-25] MEDS ORDERED: methylPREDNISolone 1,000 MG in DEXTROSE 5% 250 ML IV STA (10:09)
[2020-04-25] MEDS: KETOROLAC TROMETHAMINE 15 MG/ML VIAL IV PRN (11:20)
[2020-04-25] MEDS ORDERED: oxyCODONE HCL IR 5 MG TAB (IMMEDIATE RELEASE) PO STA (11:40)
--- NOTE | 2020-04-25 12:59 | Electrocardiogram Report ---
Test Reason : Blood Pressure : / mmHG Vent. Rate : 044 BPM Atrial Rate : 044 BPM P-R Int : 132 ms QRS Dur : 090 ms QT Int : 536 ms P-R-T Axes : 046 049 056 degrees QTc Int : 458 ms Marked sinus bradycardia Abnormal ECG When compared with ECG of 04-SEP-2015 15:58, Vent. rate has decreased BY 34 BPM Otherwise no significant change Confirmed by Hany Espinosa ([id number]) on 04/25/2020 12:59:28 PM Referred By: REFERRED SELF Confirmed By:Hany Espinosa
[2020-04-25 14:00] LABS: Basophils # (auto) 0.01 K/uL (0-0.2); Basophils % (auto) 0.1 %; Hematocrit (blood only) 35.1 % (37-47); Hemoglobin 11.3 g/dL (12.0-16.0); Immature Granulocytes % (auto) 1.1 %; Lymphocytes # (auto) 0.72 K/uL (1.2-3.4); Lymphocytes % (auto) 8.1 %; Mean Corpuscular Hemoglobin 28.5 pg (25-34); Mean Corpuscular Hgb Conc 32.2 g/dL (32-36); Mean Corpuscular Volume 88.4 fL (80-100); Monocytes # (auto) 0.24 K/uL (0.11-0.59); Monocytes % (auto) 2.7 %; Neutrophils # (auto) 7.85 K/uL (1.4-6.5); Platelet Count 236 K/uL (130-400); RDW Coefficient of Variation 14.7 % (11.5-14.5); RDW Standard Deviation 47.8 fL (36.4-46.3); Red Blood Count 3.97 M/uL (4.2-5.4); White Blood Count 8.92 K/uL (4.8-10.8)
[2020-04-25 14:25] LABS: Alanine Aminotransferase 37 U/L (12-78); Aspartate Aminotransferase 23 U/L (15-37); BUN Creatinine Ratio 24.5 (10-20); Blood Urea Nitrogen 20 mg/dl (7-18); Calcium 7.8 mg/dl (8.5-10.1); Carbon Dioxide 22 mmol/L (21-32); Chloride 109 mmol/L (98-107); Creatinine Clr Calc Pharmacy 108.7 ml/min; Est GFR (African American) 100.9; Glucose 156 mg/dl (70-99); Potassium 3.5 mmol/L (3.5-5.1); Sodium 140 mmol/L (136-145)
[2020-04-25 14:30] LABS: Albumin Globulin Ratio 0.8 (0.9-2); Alkaline Phosphatase 56 U/L (45-117); Bilirubin,Total 0.3 mg/dl (0.2-1); Globulin 3.9 gm/dl (2.5-4.0); Total Protein 6.9 gm/dl (6.4-8.2); Troponin I < 0.015 ng/ml (0-0.045)
[2020-04-25] MEDS ORDERED: SODIUM CHLORIDE 0.9% 1000ML 1,000 ML IV ONE (14:30)
--- NOTE | 2020-04-25 16:19 | Hospitalist Progress Note ---
Date of Service April 25, 2020 Assessment & Plan (1) Facial pain: periorbital/facial cellulitis -As per ED notes on 04/22/2020 that "This is a 45-year-old female that presents to the emergency department via private vehicle with complaints of "swollen face, eyes blurry, cannot swallow". The patient states that she had a bite on the right calf region in late February of this year. She was treated with doxycycline for suspected cellulitis. She then notes that Mar 25 of this year she developed a lump behind the right ear. She was once again placed on doxycycline and notes that she had a CT scan performed of the area. She has since then followed up with the PCP as well as infectious disease. She notes that she did have a positive toxoplasmosis IgM but will need to have another 1 to confirm this. She notes persistent swelling to the right side of the face that has not improved much. The patient notes that she is currently on azithromycin and the last dose was to be today but could not tolerate this noting that she had trouble swallowing. She notes that when she awoke today she had swelling to the right side of the face which is worse than what she had before and also notes pain into the right ear, and right eye. She also notes right eye blurriness. She notes that the pain in the right eye is also with movement." -review of outpatient notes with [facility] that patient has been imaged extensively with CT scans in recent past and follows with Dr. Dao Calhoun MD (Infectious Diseases) -outpatient CT Neck with contrast on 04/12/2020: Right posterior cervical triangle and right upper cervical chain lymphadenopathy, with mild soft tissue stranding along the right side of the neck, most suggestive of an underlying infection. No evidence of rim enhancing fluid collection that would suggest an abscess.Bilateral prominent lingual tonsils, stable -outpatient CT Chest/Abdomen with Contrast 04/12/2020: No acute abnormality of the chest, abdomen, or pelvis. Findings suggestive of gastroesophageal reflux. Nonobstructive right nephrolithiasis. Left adnexal cyst. -on this hospital presentation on 04/22/2020, Head CT without contrast: No acute intracranial abnormality. Soft Tissue Neck CT 1. There is mild bilateral periorbital and premalar soft tissue inflammation, right greater than left. Correlate clinically for evidence of mild bilateral periorbital/facial cellulitis. 2. The bony orbits are intact and orbital contents are normal in appearance. 3. The inflammatory process identified in the right posterior neck seen on 03/26/2020 has resolved. 4. There is enlargement of the palatine and lingual tonsils which cause narrowing of the airway. This is similar in appearance to 03/26/2020 examination. -as per admitting hospitalist Amna Velasquez "The patient has multiple allergies. The patient was taking azithromycin for possible cat-scratch disease for 10 days and today was the last day, which she did not take. Could be allergic reaction. The patient received Decadron, IV Benadryl, IV Pepcid and Unasyn. in the ER. Swelling of the face improved. Still has some erythema and complains of pain . We will treat for possible cellulitis and mild tonsillitis with IV Unasyn. The patient also had some periauricular lymphadenopathy and inflammatory process in the right posterior neck since mid March, which was treated with antibiotics initially with couple of courses of doxycycline and then Rocephin, which seemed to improve, but then got worse and seen ID on 04/13/2020 and prescribed azithromycin for possible cat scratch disease. She states the symptoms are much improved and on the CAT scan today also it seems those inflammatory processes are resolved. But now came with current facial cellulitis and facial swelling. [place] ID also did cat-scratch studies, which came back negative, but her toxoplasma IgM came back positive and IgG negative. As per the patient, ID recommended to repeat the toxoplasmosis studies before starting any kind of treatment. Will order Toxoplasmosis studies. Toxoplasmosis also sometimes can cause uveitis, but there is no obvious inflammation of the eye. There was a complaint of some blurred vision." -Dr. Velasquez consulted and notified ophthalmology for inpatient evaluation. Patient given IV fluids. continue with Claritin, Pepcid, and IV Solu-Medrol 60 mg IV -the solumedrol increased to 1000 mg IV x 3 days starting on 04/23/2020 as recommended by ophthalmology Dr. Aaron after bedside eye evaluation in case of optic neuritis. Brain MRI with contrast did not find evidence by imaging of optic neuritis (but There are few nonspecific foci of increased T2 and FLAIR signal within the white matter). Neurology Dr. Weston recommends lumbar puncture to rule etiologies including multiple sclerosis (ophthalmology Dr. Aaron bedside eye exam on 04/23/2020 PHYSICAL EXAMINATION: Her visual acuity with her glasses at near is 20/40 in the right eye and 20/25 in the left eye. Her pupils are both 5 mm and reacted down to 3 mm. There is no afferent pupillary defect noted in the right eye. Her intraocular pressure was 22 in the right eye and 19 in the left eye. Her confrontational visual haley were full in both eyes. Her extraocular movements were full in both eyes, but she reported pain with movement of her right eye. Her red desaturation test was mildly positive on the right eye. Externally, she has mild erythema and a papular rash on both sides of the face and malar area and around the right eye. She has only very very mild swelling of her right upper lid at this point. Her conjunctiva and sclerae are white and quiet in both eyes. Her corneas appear clear in both eyes. Her anterior chamber is deep and formed bilaterally. Her irises are round with no defects noted and her lenses appeared clear. Her dilated fundus exam on the right shows a cup-to-disc ratio of 0.3. The macula looks normal with no signs of bleeding or swelling. Her peripheral retina is flat and attached for 360 degrees. The dilated exam in her left eye shows a cup-to-disc ratio of 0.3. The macula and peripheral retina appear normal as well.) - as per hospitalist subjective assessment on 04/24/20: "Patient has been ambulatory. no falls. reports her swallowing since yesterday has improved significantly. still with blurred vision of right eye. without being asked or prompted, she complains that objects that are red like the garbage bin is really bothering her but she cannot describe if it is a discoloration. she denies family history of multiple sclerosis," IV antibiotics and steroids continued -04/25/2020: Patient underwent lumbar puncture today. Preliminary CSF are normal other than mildly elevated CSF glucose but patient recently on high dose steroids (follow the tests for multiple sclerosis related proteins, Lyme, CSF culture/gram stain). Unfortunately since the procedure, patient experience a lot of chest, neck, face discomforts with some flushing of the face, headache, also hypertensive blood pressure. Patient received IV fluids, the third planned dose of 1000 mg IV solumedrol, pain medications, and a nitro paste x 1 one for blood pressure. Troponin negative, EKG nonischemic; patients has had sinus bradycardia in the past and also on propanolol. Lactid acid 2.3 and patient received more IV fluids. Continue to monitor in the hospital for symptoms with current IV ampicillin being continued (2) Tenderness of neck: -patient reports that the high dose 1000 mg IV solumedrol on 04/23/20 helped resolve throat pain and has been tolerating solid diet since that time -patient denies food allergies despite multiple antibiotic allergies listed. she reports she has seen curator natural history museum and rule out food allergies (3) Blurred vision, right eye: -the solumedrol increased to 1000 mg IV x 3 days starting on 04/23/2020 as recommended by ophthalmology Dr. Aaron after bedside eye evaluation in case of optic neuritis. Brain MRI with contrast did not find evidence by imaging of optic neuritis (but There are few nonspecific foci of increased T2 and FLAIR signal within the white matter). Neurology Dr. Weston recommends lumbar puncture to rule etiologies including multiple sclerosis -possible for lumbar puncture to take place under fluroscopy with radiology on Saturday04/25/2020 -patient will re-schedule her appointment with her usual outpatient ophthalm ologist Dr. Tirado with [facility] and she notified them (4) Migraine: -history of migraine headache -continue home dose topiramate 1000 mg BID -there is prn pain medications History of anxiety and depression. History of generalized anxiety disorder and social anxiety disorder. -Continue Ativan and fluoxetine. -Continue propranolol History of postural orthostatic tachycardia syndrome (POTS) -on salt tablets 1000 mg daily -serum sodium is normal Sleep apnea -CPAP qhs Gastroesophageal reflux disease -continue sucralfate. HbA1c levels is 5.7, no diabetes, patient on sliding scale insulin while in the hospital because of effects of steroids on blood sugars Deep venous thrombosis prophylaxis -sequential compression devices for now, ambulation as tolerated Full Code Admission and Anticipated Discharge Date Admission Date: April 23, 2020 Subjective 04/25/2020: Patient underwent lumbar puncture today. Preliminary CSF are normal other than mildly elevated CSF glucose but patient recently on high dose steroids (follow the tests for multiple sclerosis related proteins, Lyme, CSF culture/gram stain). Unfortunately since the procedure, patient experience a lot of chest, neck, face discomforts with some flushing of the face, headache, also hypertensive blood pressure. Patient received IV fluids, the third planned dose of 1000 mg IV solumedrol, pain medications, and a nitro paste x 1 one for blood pressure. Troponin negative, EKG nonischemic; patients has had sinus bradycardia in the past and also on propanolol. Lactid acid 2.3 and patient received more IV fluids. Continue to monitor in the hospital for symptoms with current IV ampicillin being continued patient remains breathing on room. no shortness of breath. no vomiting. no fever to date Review of Systems 2 Review of Systems: All systems reviewed & are unremarkable except as noted in Subjective Physical Exam Constitutional: cooperative Eyes: EOM intact bilaterally ENMT: external ear and nose normal, oropharynx normal redness of face is improving Neck: normal visual inspection Respiratory: normal respiratory effort, lungs clear to auscultation Cardiovascular: Rate/Rhythm: regular rate Gastrointestinal (Abdomen): normal bowel sounds, soft, nontender, no hepatosplenomegaly Musculoskeletal: Head/Neck/Chest: normocephalic and head atraumatic Neurologic: PERRL, EOMI, accommodation nl, no face palsy, no dysarthria moves all extremities Psychiatric: A+Ox3, euthymic affect Results & Data Results & Data ([facility]) Vital Signs (Past 12 Hours) Vital Signs Temp Pulse Resp BP BP Pulse Ox 04/25/20 15:37 36.6 C 47 L 16 160/91 H 95 04/25/20 11:59 37.2 C 46 L 18 155/82 H 91 04/25/20 10:55 36.9 C 53 L 18 171/90 H 94 04/25/20 09:45 37.3 C 48 L 18 179/94 H 93 04/25/20 09:32 48 L 18 179/107 H 04/25/20 09:12 37.3 C 51 L 18 172/99 H 95 04/25/20 07:13 36.5 C 50 L 20 152/73 H 94
--- NOTE | 2020-04-25 16:27 | Communication Note ---
Date of Service: April 25, 2020 [place] had her lumbar puncture today. The opening pressure was elevated to 280 but ophthalmologic examination did not show any evidence for papilledema so I suspect this may have been a factor of poor relaxation or perhaps even the effects of the corticosteroid she has been taking. #3 white cells no red cells protein was normal glucose was slightly elevated in proportion to her peripheral glucose elevation and she tolerated test well but now is complaining about a headache that I can tell is positional or not as she has not tried lying down or claims that it is worse when she lies down She does have ongoing migraines so this may simply be a protracted migraine Went over the case here subjective vision is stable on the right she still has some color desaturation still has the orbital pressure bilaterally This should be her last day of intravenous high-dose Solu-Medrol I would suggest that she be placed on a tapering oral course of prednisone 80 mg daily for 2 days and 60 mg daily for 2 days 40 mg daily for 2 days 20 mg for 2 days, 10 mg for 2 days and then stop She has an appointment with her perioperative assistant/manufacturing helper at was to be tomorrow but has been rescheduled and I think this could wait a week. I be curious whether on that examination there is evidence for some optic nerve swelling or developing optic nerve pallor consistent with the presumptive diagnosis of posterior optic neuritis Much of her spinal fluid will still be pending for another week or 2 and I am going to see 1 more time tomorrow and then sign off the case and arrange for her to come back to see us in the office in about 2 weeks at which point hopefully we will have most of the information regarding the multiple sclerosis profile etc. She needs to continue seeing the infectious disease service and get input regarding whether or not she needs to continue antibiotics and if so which ones and whether or not she needs repeat testing for the cat scratch disease markers Lars Weston MD
[2020-04-25] MEDS ORDERED: oxyCODONE HCL IR 5 MG TAB (IMMEDIATE RELEASE) PO PRN (16:45)
[2020-04-25] MEDS: MELATONIN 3 MG TAB PO PRN (20:30)
[2020-04-25] MEDS: LORazepam 1 MG TAB PO SCH (20:30)
[2020-04-26] MEDS ORDERED: hydrALAZINE HCL 20 MG/ML VIAL IV ONE (00:46)
[2020-04-26] MEDS: AMPICILLIN/SULBACTAM SOD 3,000 MG in 0.9 % SODIUM CHLORIDE 100 ML IV SCH ×3 (06:05→19:52)
[2020-04-26 06:22] LABS: Basophils # (auto) 0.01 K/uL (0-0.2); Basophils % (auto) 0.1 %; Eosinophils # (auto) 0.01 K/uL (0-0.5); Eosinophils % (auto) 0.1 %; Hematocrit (blood only) 35.1 % (37-47); Hemoglobin 11.4 g/dL (12.0-16.0); Immature Granulocytes # (auto) 0.36 K/uL (0.00-0.02); Immature Granulocytes % (auto) 4.8 %; Lymphocytes # (auto) 1.13 K/uL (1.2-3.4); Lymphocytes % (auto) 15.1 %; Mean Corpuscular Hemoglobin 28.6 pg (25-34); Mean Corpuscular Hgb Conc 32.5 g/dL (32-36); Mean Corpuscular Volume 88.2 fL (80-100); Mean Platelet Volume 10.8 fL (7.4-10.4); Monocytes # (auto) 0.28 K/uL (0.11-0.59); Monocytes % (auto) 3.7 %; Neutrophils # (auto) 5.71 K/uL (1.4-6.5); Neutrophils % (auto) 76.2 %; Platelet Count 238 K/uL (130-400); RDW Coefficient of Variation 14.8 % (11.5-14.5); RDW Standard Deviation 48.2 fL (36.4-46.3); Red Blood Count 3.98 M/uL (4.2-5.4)
[2020-04-26 06:50] LABS: Calcium 7.8 mg/dl (8.5-10.1); Est GFR (African American) 102.4; Est GFR (Non-African American) 88.3; Potassium 3.5 mmol/L (3.5-5.1)
[2020-04-26 06:53] LABS: Albumin Globulin Ratio 0.8 (0.9-2); Bilirubin,Total 0.3 mg/dl (0.2-1); Globulin 3.6 gm/dl (2.5-4.0); Total Protein 6.6 gm/dl (6.4-8.2)
[2020-04-26] MEDS: CETIRIZINE HCL 10 MG TABLET PO SCH (07:33)
[2020-04-26] MEDS: MULTIVITAMIN TAB PO SCH (07:33)
[2020-04-26] MEDS: FLUoxetine HCL 20 MG CAP PO SCH (07:34)
[2020-04-26] MEDS: TOPIRAMATE 100 MG TAB PO SCH ×2 (07:34→13:27)
[2020-04-26] MEDS: SODIUM CHLORIDE 1 GM TABLET PO SCH (07:34)
[2020-04-26] MEDS: SUCRALFATE 1 GM TAB PO SCH ×4 (07:34→20:50)
[2020-04-26] MEDS: INSULIN ASPART 100 UNITS/ML 3 ML PEN SC SCH ×4 (09:48→20:17)
--- NOTE | 2020-04-26 13:50 | Hospitalist Progress Note ---
Date of Service April 26, 2020 Assessment & Plan (1) Diffuse cellulitis of face: Day 4 of Unasyn and there is no longer any erythema present with improvement in swelling of her face. She also received 3 days of Solumedrol 1gram IV that just finished. She reports a recurrence of these episodes of facial swelling in addition to a sunburn feeling with blistering of her skin both on her face and on bilateral extensor forearms. The episodes have an unknown trigger but have occurred frequently enough for her to notice a pattern in recent years. She reports polyarticular involvement including large and small joints. She reports morning stiffness for less than 30 minutes daily. She reports episodic symptoms. She denies having seen a computer analyst supervisor in the past other than distantly once. Will discuss with rheumatology and have her follow-up as outpatient. Continue antibiotics for now (2) Post lumbar puncture headache: Anesthesia requested for a blood patch placement. (3) Blurred vision, right eye: Blurred vision in right eye with painful movement. This is persistent today. She was examined by Dr. Aaron, ophthalmology while inpatient and was given 3 days of Solu-Medrol 1000 mg IV. Brain MRI did not find evidence of optic neuritis on imaging, however white matter changes were present. ?uveitis. Per neurology, an LP was performed with studies to exclude multiple sclerosis pending. Vision does not seem to be getting worse. Follow-up with ophthalmology as outpatient. (4) Chest pain: EKG with no evidence of ACS. 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 No pulmonary emboli were seen. 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 Echo requested for evaluation. Continue to monitor on telemetry for conduction system abnormalities. Follow high-dose steroids recently given we will trend infla mmatory markers. (5) JANUSZ on CPAP: cont home CPAP. (6) POTS (postural orthostatic tachycardia syndrome): Continue salt tablets per home regimen. (7) Moose-Danlos disease: per history (8) Depression: Continue Ativan, fluoxetine, propanolol per home regimen. (9) DVT prophylaxis: SCDs/ambulation Full Code Dispo-to home in am. Giulia Ambrose DO [facility] Hospitalist Admission and Anticipated Discharge Date Admission Date: April 23, 2020 Subjective central chest pain radiating to her back and shoulder blades-intermittent since yesterday no SOB postLP headache present-better with lying flat,worse with sitting up tolerating PO denies fevers, chills, or other infectious symptoms -reports blistering on her face initially when she came in which is improved -reports sunburned feeling on her face and extensor surfaces of arms -head swelling improved but right eye still bothering her-painful with movement, no scratching, burning or itching feeling -vision still blurry on the right. -also reports long history of morning stiffness <30 minutes, a h/o EDS, and pain/stiffness in fine motor joints of her hands in addition to her knees, hips, and wrists. -saw a Senior Physical Therapist a "long time ago" Review of Systems Review of Systems: All systems reviewed & are unremarkable except as noted in Subjective Physical Exam Physical Exam: CONSTITUTIONAL: obese, vitals as above, generally ill- appearing EYES: EOMI bilaterally (tender on right with movement), no scleral irritation, PERRL, normal conjunctivae, no scleral icterus ENT: external ear and nose normal, oropharynx clear, MMM. No LAD behind ears, or submandibular. Skin is warm and red, but no blistering or evidence of cellulitis. RESPIRATORY: clear to auscultation bilaterally, no crackles, rales or wheezes, normal respiratory effort CARDIOVASCULAR: regular rate and rhythm, S1 and 2 heard without murmurs, gallops or rubs, no JVD, no peripheral edema GASTROINTESTINAL: soft, nontender, nondistended, no guarding MUSCULOSKELETAL: strength 5/5 throughout, head is normocephalic and atraumatic SKIN: warm and dry NEUROLOGIC: PERRL, EOMI, no facial palsy, no dysarthria. Touch, pain and proprioception normal. CN 2-12 grossly intact, no sensory deficit, normal cognition, normal speech, no tremor. No gross focal deficits x ?vision issues on right eye. PSYCHIATRIC: alert cooperative and oriented to person, place and time. Results & Data Results & Data ([facility]) Vital Signs (Past 12 Hours) Vital Signs Temp Pulse Resp BP BP Pulse Ox 04/26/20 12:10 79 159/90 H 95 04/26/20 07:01 36.5 C 46 L 19 165/91 H 95 04/26/20 02:33 139/79 Laboratory Results Short CBC 04/25/20 04/26/20 Range/Units 13:44 06:02 WBC 8.92 7.50 (4.8-10.8) K/uL Hgb 11.3 L 11.4 L (12.0-16.0) g/dL Hct 35.1 L 35.1 L (37-47) % Plt Count 236 238 (130-400) K/uL BMP 04/25/20 04/26/20 13:44 06:02 Sodium 140 140 Potassium 3.5 3.5 Chloride 109 H 109 H Carbon Dioxide 22 24 BUN 20 H 19 H Creatinine 0.82 0.81 Glucose 156 H 166 H Calcium 7.8 L 7.8 L Cardiac Enzymes 04/25/20 Range/Units 13:44 Troponin I < 0.015 (0-0.045) ng/ml Liver Function 04/25/20 04/26/20 Range/Units 13:44 06:02 Total Bilirubin 0.3 0.3 (0.2-1) mg/dl AST 23 32 (15-37) U/L ALT 37 53 (12-78) U/L Alkaline Phosphatase 56 54 (45-117) U/L Albumin 3.0 L 3.0 L (3.4-5.0) gm/dl Medications Administered Current Inpatient Medications Acetaminophen (Acetaminophen 325 Mg Tab) 325 mg PO Q6H PRN PRN Reason: pain/fever Stop: 05/23/20 18:59 Last Admin: 04/25/20 16:59 Dose: 325 mg Documented by: Albuterol (Albuterol Hfa 8 Gm Inhaler) 2 - 4 puffs INH Q6H PRN PRN Reason: Wheezing Stop: 05/23/20 01:05 Calcium Carbonate (Calcium Carbonate 500 Mg Chewable Tab) 500 mg PO Q6 PRN PRN Reason: Indigestion Stop: 05/23/20 22:20 Last Admin: 04/24/20 13:42 Dose: 500 mg Documented by: Cetirizine HCl (Cetirizine Hcl 10 Mg Tablet) 10 mg PO QAM GINO Stop: 05/23/20 08:59 Last Admin: 04/26/20 07:33 Dose: 10 mg Documented by: Dextrose (Dextrose 50% 50 Ml Syringe) 25 - 50 ml IV UD PRN; Protocol PRN Reason: Hypoglycemia Protocol Stop: 05/23/20 11:56 Fluoxetine HCl (Fluoxetine Hcl 20 Mg Cap) 80 mg PO QAM GINO Stop: 05/23/20 08:59 Last Admin: 04/26/20 07:34 Dose: 80 mg Documented by: Glucagon (Glucagon For Inj 1 Mg Vial) 1 mg SQ UD PRN; Protocol PRN Reason: Hypoglycemia Protocol Stop: 05/23/20 11:56 Glucose (Glucose 10 Tabs/Tube) 4 - 8 tabs PO UD PRN; Protocol PRN Reason: Hypoglycemia Protocol Stop: 05/23/20 11:56 Glucose (Glucose 40% Gel 15 Gm Tube) 15 - 30 gm PO UD PRN; Protocol PRN Reason: Hypoglycemia Protocol Stop: 05/23/20 11:56 Hydromorphone HCl (Hydromorphone Inj 0.5 Mg/0.5 Ml Syr) 0.5 mg IV Q12H PRN PRN Reason: Severe Pain Stop: 05/07/20 10:23 Last Admin: 04/26/20 00:05 Dose: 0.5 mg Documented by: Ampicillin Sodium/Sulbactam Sodium 3,000 mg/ Sodium Chloride 108 mls @ 200 mls/hr IV Q6H GINO; Protocol Stop: 04/30/20 05:59 Last Infusion: 04/26/20 12:23 Dose: 0 mls/hr Documented by: Lorazepam (Ativan) 0.25 mg in 0.5 mls @ 0.5 mls/min IV Q12H PRN PRN Reason: for anxiety or prior to MRI Stop: 05/23/20 11:55 Last Admin: 04/23/20 14:04 Dose: 0.5 mls/min Documented by: Insulin Aspart (Insulin Aspart 100 Units/Ml 3 Ml Pen) 0 units SC ACHS GINO Stop: 05/25/20 16:29 Last Admin: 04/26/20 12:13 Dose: Not Given Documented by: Lorazepam (Lorazepam 1 Mg Tab) 1 mg PO HS GINO Stop: 05/23/20 20:59 Last Admin: 04/25/20 20:30 Dose: 1 mg Documented by: Meclizine HCl (Meclizine Hcl 25 Mg Tab) 25 mg PO TID PRN PRN Reason: Dizziness Stop: 05/23/20 01:12 Melatonin (Melatonin 3 Mg Tab) 3 mg PO HS PRN PRN Reason: Sleep Stop: 05/23/20 01:14 Last Admin: 04/25/20 20:30 Dose: 3 mg Documented by: Miscellaneous (Carbohydrates For Hypoglycemia ) 15 - 30 gm PO UD PRN PRN Reason: Hypoglycemia Protocol Stop: 05/23/20 11:56 Miscellaneous Information (Ampicillin/Sulbactam Consult Active) 1 ea N/A UD PRN PRN Reason: Consult Stop: 05/23/20 01:13 Multivitamins (Multivitamin Tab) 1 tab PO QAM GINO Stop: 05/23/20 08:59 Last Admin: 04/26/20 07:33 Dose: 1 tab Documented by: Ondansetron HCl (Ondansetron Inj 2 Mg/Ml 2 Ml Vial) 4 mg IV Q6H PRN PRN Reason: Nausea Stop: 05/23/20 01:05 Last Admin: 04/25/20 17:02 Dose: 4 mg Documented by: Oxycodone HCl (Oxycodone Hcl Ir 5 Mg Tab (Immediate Release)) 5 mg PO Q8H PRN PRN Reason: moderate pain Stop: 05/09/20 16:44 Last Admin: 04/25/20 16:59 Dose: 5 mg Documented by: Propranolol HCl (Propranolol Hcl 20 Mg Tab) 40 mg PO DAILY [facility] Stop: 05/23/20 08:59 Last Admin: 04/25/20 07:37 Dose: 40 mg Documented by: Sodium Chloride (Sodium Chloride 1 Gm Tablet) 1 gm PO DAILY GINO Stop: 05/23/20 08:59 Last Admin: 04/26/20 07:34 Dose: 1 gm Documented by: Sucralfate (Sucralfate 1 Gm Tab) 1 gm PO ACHS [facility] Stop: 05/23/20 07:29 Last Admin: 04/26/20 12:02 Dose: 1 gm Documented by: Topiramate (Topiramate 100 Mg Tab) 100 mg PO BID@0900,1400 [facility] Stop: 05/23/20 08:59 Last Admin: 04/26/20 13:27 Dose: 100 mg Documented by:
[2020-04-26] MEDS ORDERED: OPTIRAY 320 125ml IV ONE (14:00)
--- NOTE | 2020-04-26 14:29 | CT Scan Report ---
CT ANGIOGRAPHY OF THE CHEST DISSECTION PROTOCOL CLINICAL HISTORY: central chest pain to back, Moose Danlos pt COMPARISON STUDY: Chest CT June 27, 2015. Chest radiograph April 08, 2020. TECHNIQUE: Before and following the IV administration of 120 mL of Optiray-320, helical axial images of the chest were obtained. Maximal intensity projections and sagittal and coronal reformats were vi ewed on an independent 3D workstation. IV contrast was administered without complication. Automated exposure control was utilized for the study. A dose lowering technique was utilized adhering to the principles of ALARA. CT DOSE: 1342.84 mGycm FINDINGS: The caliber of the thoracic aorta is normal. There is no intramural hematoma or thoracic a ortic dissection. No pulmonary emboli are identified. Mild cardiomegaly is noted. No pericardial effu ju. There is no pneumothorax. There are trace bilateral pleural effusions. There is no consolidatio n to suggest pneumonia. Mild interlobular septal thickening is noted. A few right upper lobe pulmonar y nodules are similar to prior chest CT. These are benign given stability. There are no new pulmonary nodules. Bony thorax is unremarkable. Upper abdomen is unremarkable. Slight edema within the mediast inum may be related to volume overload. IMPRESSION: 1. No thoracic aortic dissection. Normal caliber thoracic aorta. 2. No pulmonary emboli identified. 3. Mild interstitial pulmonary edema and trace bilateral pleural effusions. 4. Mild cardiomegaly. ACT 112: Negative or not required by law. Electronically signed by: Matt Kendrick M.D. 04/26/2020 2:27 PM
--- NOTE | 2020-04-26 16:16 | Communication Note ---
Date of Service: April 26, 2020 Dee was seen today. Her headache has responded to recumbency and is worse with more erect posture consistent with a post lumbar puncture headache and plans are underway to have her seen by anesthesiology and perhaps get a blood patch. Her vision is hard to assess as the room is dark but she reports continued symptoms of color desaturation on the right and some orbital pain bilaterally consistent clinically with a right posterior optic neuritis/neuropathy but not associated with anything significant yet on CSF analysis or on imaging She is going to be hopefully discharged soon on a tapering oral course of prednisone she is going to see her baker apprentice/occupational therapy assistant for follow-up and I need to see her in [facility] neurology office in about 2 to 3 weeks for review of her CSF and for performance if necessary some outpatient serologic studies to search for neuromyelitis optica I am going to sign off the case at this point the above recommendations for discharge planning Lars Weston MD
--- NOTE | 2020-04-26 16:29 | Electrocardiogram Report ---
Test Reason : Blood Pressure : / mmHG Vent. Rate : 052 BPM Atrial Rate : 052 BPM P-R Int : 122 ms QRS Dur : 098 ms QT Int : 506 ms P-R-T Axes : 053 050 049 degrees QTc Int : 470 ms Sinus bradycardia with sinus arrhythmia Otherwise normal ECG When compared with ECG of 25-APR-2020 10:07, No significant change was found Confirmed by Ajith Dubon ([id number]) on 04/26/2020 4:28:29 PM Referred By: REFERRED SELF Confirmed By:Ajith Dubon
--- NOTE | 2020-04-26 18:15 | Anesthesia Procedure Note ---
Anesthesia Procedure Note Epidural Blood Patch Procedure Note Date of procedure: 04/26/20 Consent: Risk / Benefits Reviewed With: PT / POA / Parent / Guardian, Accepts Plan, Informed Consent Obtained and All Questions Answered Risks include: Failure of technique, Back pain, Infection, Bleeding and Dural puncture Monitors attached: Blood Pressure, EKG and Pulse Oximetry Time out completed: Yes Premedication: None Position: Sitting Surgical Prep: Hand hygeine: Soap and water Equipment/Supplies: Cap, Mask, Sterile gloves, Sterile drapes and Sterile procedures used Skin prep: Duraprep Local medication: 1% Lidocaine (ml) (4ml) Venous access site: Right antecubital vein Site: Midline Attempts: 1 Procedure Summary: pt sitting, prep and drape, local, L3-4 MÓNICA without difficul ty - 20ml blood in without pain or excess pressure - patient lying down - feels pain of headache seems to be less but there is still some there - vitals stable - bp actually high Post-Procedure: Pt hemodynamically stable, Pt tolerates well and No complications
[2020-04-26] MEDS ORDERED: hydrALAZINE HCL 20 MG/ML VIAL IV STA (19:21)
[2020-04-26] MEDS ORDERED: hydrALAZINE HCL 20 MG/ML VIAL IV PRN (19:25)
[2020-04-26] MEDS: LORazepam 1 MG TAB PO SCH (20:49)
[2020-04-27] MEDS: AMPICILLIN/SULBACTAM SOD 3,000 MG in 0.9 % SODIUM CHLORIDE 100 ML IV SCH ×2 (01:00→06:37)
[2020-04-27] MEDS: LORazepam 0.25 MG/0.5 ML VIAL IV PRN (05:47)
[2020-04-27] MEDS ORDERED: IBUPROFEN 600 MG TAB PO PRN (09:00)
[2020-04-27] MEDS: ONDANSETRON INJ 2 MG/ML 2 ML VIAL IV PRN ×2 (09:04→14:23)
[2020-04-27] MEDS: SUCRALFATE 1 GM TAB PO SCH ×2 (09:07→11:21)
[2020-04-27] MEDS: FLUoxetine HCL 20 MG CAP PO SCH (09:07)
[2020-04-27] MEDS: TOPIRAMATE 100 MG TAB PO SCH ×2 (09:07→13:43)
[2020-04-27] MEDS: SODIUM CHLORIDE 1 GM TABLET PO SCH (09:08)
[2020-04-27] MEDS: MULTIVITAMIN TAB PO SCH (09:08)
[2020-04-27] MEDS: CETIRIZINE HCL 10 MG TABLET PO SCH (09:08)
--- NOTE | 2020-04-27 09:57 | XRay Report ---
XR chest 1V portable CLINICAL HISTORY: Atypical chest pain COMPARISON STUDY: 04/08/2020 FINDINGS: The cardiac and mediastinal contours are normal. There is no evidence of focal pulmonary co nsolidation. There is no evidence of failure. No pleural effusions are visualized.[ IMPRESSION: No active disease in the chest. ACT 112: Negative or not required by law. Electronically signed by: John Callahan M.D. 04/27/2020 9:56 AM
[2020-04-27] MEDS: PROPRANOLOL HCL 20 MG TAB PO SCH (10:21)
[2020-04-27] MEDS: INSULIN ASPART 100 UNITS/ML 3 ML PEN SC SCH ×4 (10:40→21:19)
[2020-04-27] MEDS ORDERED: SODIUM CHLORIDE 0.9% 1000ML 1,000 ML IV ONE (10:51)
--- NOTE | 2020-04-27 10:54 | Hospitalist Progress Note ---
Date of Service April 27, 2020 Assessment & Plan (1) Diffuse cellulitis of face: No further evidence of cellulitis. Changed Unasyn to doxycycline for total 7 day course abx. She also received 3 days of Solumedrol 1gram IV that just finished. She reports a recurrence of these episodes of facial swelling in addition to a sunburn feeling with blistering of her skin both on her face and on bilateral extensor forearms. The episodes have an unknown trigger but have occurred frequently enough for her to notice a pattern in recent years. She reports polyarticular involvement including large and small joints. She reports morning stiffness for less than 30 minutes daily. She reports persistent enthesitis and specifically heel pain, and reports SI joint involvement. She reports episodic symptoms/occurrences. She denies having seen a hop grower in the past other than distantly once. Will discuss with rheumatology and have her follow-up as outpatient, as suspect there may be a noninfectious component to this recurrent facial swelling. An operations plant attendant is another good idea. (2) Post lumbar puncture headache: Anesthesia requested for a blood patch placement on 04/27 with resolution of headache. Worsened dizziness and orthostasis today, may be related to these recent CSF changes, high dose steroids, persistent abnormal vision, or POTS to name a few possibilities? Giving IVF now to see if this improves symptoms. Consult cardiology for thoughts and to help with ongoing chest pain. (3) Dizziness: plan as above. (4) Blurred vision, right eye: Blurred vision in right eye with painful movement. ?uveitis with other collection of skin and joint symptoms that are recurrent. HLA-B27 pending. This is persistent today. She was examined by Dr. Aaron, ophthalmology while inpatient and was given 3 days of Solu-Medrol 1000 mg IV. Brain MRI did not find evidence of optic neuritis on imaging, however white matter changes were present. Per neurology, an LP was performed with studies to exclude multiple sclerosis pending. Vision does not seem to be getting worse. Follow-up with ophthalmology as outpatient. (5) Chest pain: EKG with no evidence of ACS. 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 No pulmonary emboli were seen. 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 Echo requested for evaluation and appears within normal limits with mild valvulopathy, normal EF. Continue to monitor on telemetry for conduction system abnormalities. Normal inflammatory markers (poss skewed in setting of recent steroids) (6) POTS (postural orthostatic tachycardia syndrome): Continue salt tablets per home regimen. Cards eval as above. IVF as above. (7) Moose-Danlos disease: per history (8) Depression: Continue Ativan, fluoxetine, propanolol per home regimen. (9) DVT prophylaxis: SCDs/ambulation Full Code Dispo-to home when feeling less dizzy, tolerating food reliably and has better control of her chest pain which is persistent. Giulia Ambrose DO [facility] Hospitalist Admission and Anticipated Discharge Date Admission Date: April 23, 2020 Subjective feels dizzy +orthostatic-->153/98 P55 lying, 130/90 P77 sitting and patient is significantly dizzy. persistent chest pain noted today and no improvement yet +very nautious blood patch placed yesterday with improvement in [place] +persistent tenderness of right eye. Review of Systems Review of Systems: All systems reviewed & are unremarkable except as noted in Subjective Physical Exam Physical Exam: CONSTITUTIONAL: obese, vitals as above, generally ill- appearing, tearful, emotional EYES: normal conjunctivae, no scleral icterus ENT: external ear and nose normal. Skin is more normal today. No evidence of blistering or cellulitis. RESPIRATORY: clear to auscultation bilaterally, no crackles, rales or wheezes, normal respiratory effort CARDIOVASCULAR: regular rate and rhythm, S1 and 2 heard without murmurs, gallops or rubs, no JVD, no peripheral edema MUSCULOSKELETAL: strength 5/5 throughout, head is normocephalic and atraumatic SKIN: warm and dry NEUROLOGIC: No facial palsy, no dysarthria. CN 2-12 grossly intact, no sensory deficit, normal cognition, No gross focal deficits x ?vision issues on right eye. PSYCHIATRIC: alert cooperative and oriented to person, place and time. Results & Data Results & Data ([facility]) Vital Signs (Past 12 Hours) Vital Signs Temp Pulse Pulse Resp BP BP Pulse Ox 04/27/20 09:39 64 04/27/20 08:51 36.3 C L 57 L 16 138/73 98 04/27/20 07:59 36.5 C 53 L 18 130/79 96 04/27/20 07:00 59 L 04/27/20 04:00 36.4 C L 45 L 18 152/87 H 96 04/27/20 00:30 58 L 04/26/20 23:00 36.8 C 50 L 18 167/96 H 97 Diagnostic Findings XR chest 1V portable CLINICAL HISTORY: Atypical chest pain COMPARISON STUDY: 04/08/2020 FINDINGS: The cardiac and mediastinal contours are normal. There is no evidence of focal pulmonary consolidation. There is no evidence of failure. No pleural effusions are visualized.[ IMPRESSION: No active disease in the chest. Medications Administered Current Inpatient Medications Acetaminophen (Acetaminophen 325 Mg Tab) 325 mg PO Q6H PRN PRN Reason: pain/fever Stop: 05/23/20 18:59 Last Admin: 04/25/20 16:59 Dose: 325 mg Documented by: Albuterol (Albuterol Hfa 8 Gm Inhaler) 2 - 4 puffs INH Q6H PRN PRN Reason: Wheezing Stop: 05/23/20 01:05 Calcium Carbonate (Calcium Carbonate 500 Mg Chewable Tab) 500 mg PO Q6 PRN PRN Reason: Indigestion Stop: 05/23/20 22:20 Last Admin: 04/24/20 13:42 Dose: 500 mg Documented by: Cetirizine HCl (Cetirizine Hcl 10 Mg Tablet) [facility] [place] Stop: 05/23/20 08:59 Last Admin: 04/27/20 09:08 Dose: 10 mg Documented by: Fluoxetine HCl (Fluoxetine Hcl 20 Mg Cap) [facility] [place] Stop: 05/23/20 08:59 Last Admin: 04/27/20 09:07 Dose: 80 mg Documented by: Hydralazine HCl (Hydralazine Hcl 20 Mg/Ml Vial) 10 mg IV Q6H PRN PRN Reason: SBP>170 Stop: 05/26/20 19:24 Ampicillin Sodium/Sulbactam Sodium 3,000 mg/ Sodium Chloride 108 mls @ 200 mls/hr IV Q6H [facility]; Protocol Stop: 04/30/20 05:59 Last Infusion: 04/27/20 07:26 Dose: Infused Documented by: Lorazepam (Ativan) 0.25 mg in 0.5 mls @ 0.5 mls/min IV Q12H PRN PRN Reason: for anxiety or prior to MRI Stop: 05/23/20 11:55 Last Admin: 04/27/20 05:47 Dose: 0.5 mls/min Documented by: Sodium Chloride (Nss 1000ml) 1,000 mls @ 999 mls/hr IV .Q1H1M ONE Stop: 04/27/20 11:51 Sodium Chloride (Nss) 500 mls @ 125 mls/hr IV .Q4H GINO Stop: 04/27/20 23:50 Ibuprofen (Ibuprofen 600 Mg Tab) 600 mg PO Q8H PRN PRN Reason: pain Stop: 05/27/20 08:59 Last Admin: 04/27/20 10:20 Dose: 600 mg Documented by: Insulin Aspart (Insulin Aspart 100 Units/Ml 3 Ml Pen) 0 units SC ACHS [facility] Stop: 05/25/20 16:29 Last Admin: 04/27/20 10:40 Dose: Not Given Documented by: Lorazepam (Lorazepam 1 Mg Tab) 1 mg PO HS [facility] Stop: 05/23/20 20:59 Last Admin: 04/26/20 20:49 Dose: 1 mg Documented by: Meclizine HCl (Meclizine Hcl 25 Mg Tab) 25 mg PO TID PRN PRN Reason: Dizziness Stop: 05/23/20 01:12 Last Admin: 04/27/20 09:36 Dose: 25 mg Documented by: Melatonin (Melatonin 3 Mg Tab) 3 mg PO HS PRN PRN Reason: Sleep Stop: 05/23/20 01:14 Last Admin: 04/25/20 20:30 Dose: 3 mg Documented by: Miscellaneous Information (Ampicillin/Sulbactam Consult Active) 1 ea N/A UD PRN PRN Reason: Consult Stop: 05/23/20 01:13 Multivitamins (Multivitamin Tab) 1 tab PO QAM [facility] Stop: 05/23/20 08:59 Last Admin: 04/27/20 09:08 Dose: 1 tab Documented by: Ondansetron HCl (Ondansetron Inj 2 Mg/Ml 2 Ml Vial) 4 mg IV Q6H PRN PRN Reason: Nausea Stop: 05/23/20 01:05 Last Admin: 04/27/20 09:04 Dose: 4 mg Documented by: Oxycodone HCl (Oxycodone Hcl Ir 5 Mg Tab (Immediate Release)) 5 mg PO Q8H PRN PRN Reason: moderate pain Stop: 05/09/20 16:44 Last Admin: 04/25/20 16:59 Dose: 5 mg Documented by: Propranolol HCl (Propranolol Hcl 20 Mg Tab) 40 mg PO DAILY [facility] Stop: 05/23/20 08:59 Last Admin: 04/27/20 10:21 Dose: 40 mg Documented by: Sodium Chloride (Sodium Chloride 1 Gm Tablet) 1 gm PO DAILY [facility] Stop: 05/23/20 08:59 Last Admin: 04/27/20 09:08 Dose: 1 gm Documented by: Sucralfate (Sucralfate 1 Gm Tab) 1 gm PO ACHS [facility] Stop: 05/23/20 07:29 Last Admin: 04/27/20 09:07 Dose: 1 gm Documented by: Topiramate (Topiramate 100 Mg Tab) 100 mg PO BID@0900,1400 [facility] Stop: 05/23/20 08:59 Last Admin: 04/27/20 09:07 Dose: 100 mg Documented by:
[2020-04-27] MEDS ORDERED: SODIUM CHLORIDE 0.9% 500 ML IV SCH (11:51)
[2020-04-27] MEDS: DOXYCYCLINE HYCLATE 100 MG CAP PO SCH ×2 (12:21→21:20)
[2020-04-27] MEDS: SODIUM CHLORIDE 0.9% 1000ML 1,000 ML IV SCH ×2 (12:47→21:18)
--- NOTE | 2020-04-27 13:49 | Cardiology Consultation ---
Date of Consultation April 27, 2020 Assessment & Plan (1) Chest pain: Symptoms very atypical for cardiac origin. No signs of ischemia by EKG, enzyme. Echocardiogram without effusion and preserved LV functions. No family history of premature coronary disease. No personal history of marked hyperlipidemia, hypertension. Suspect GI origin with recent antibiotics and cortical steroids Could perform stress echocardiogram after discharge once current issues resolved (2) Diffuse cellulitis of face: (3) Post lumbar puncture headache: (4) POTS (postural orthostatic tachycardia syndrome): no current evidence of hypotension, blood pressure is actually elevated. Heart rate relatively slow on current dose of propanolol would not increase further History of Present Illness Reason for Consultation: Atypical chest pain Requesting Physician: Dr. Ambrose Attending Physician: Giulia Ambrose, DO History of Present Illness The patient is a 45-year-old female who has underlying medical issues include 1. Autonomic dysfunction/possible POTS syndrome with past syncope 2. Obesity 3. Polycystic ovarian disease 4. Obstructive sleep apnea on CPAP 5. Past evaluation for possible Moose Danlos syndrome , [facility] with findings of minor joint laxity only and and no criteria for either classic or vascular form Patient currently admitted for difficulties with right facial and neck cellulitis/myositis treated with oral and IV antibiotics as well as outpatient course of oral prednisone. Inpatient course as well outlined by referring physician includes lumbar puncture with persistent postprocedural headache Patient for the past 2 months has also experienced symptoms of intermittent sharp jabbing pain mid chest and left shoulder. Symptoms are not exacerbated by exertion. Not sustained. And have had no signs of acute ischemia by EKG or cardiac enzyme Patient today notes occasional dizziness on ambulating to bathroom consistent with past history though no evidence of hypotension or profound Brian arrhythmias on telemetry or vital signs. No current fevers or chills. No bleeding difficulties. No history of significant hypertension, hyperlipidemia, prior history of myocardial infarction angina or congestive heart failure Allergies Allergy/AdvReac Type Severity Reaction Status Date / Time latex Allergy Intermediate HIVES Verified 04/22/20 22:03 Bactrim Allergy Mild HIVES Verified 05/09/17 11:59 Cipro Allergy Mild HIVES Verified 05/09/17 11:59 ciprofloxacin Allergy Mild HIVES Verified 04/22/20 22:03 sulfamethoxazole Allergy Mild HIVES Verified 04/22/20 22:03 Cephalosporins Allergy Unknown Hives Verified 04/22/20 22:03 chlorpheniramine Allergy Unknown Unknown Verified 04/22/20 22:03 propoxyphene Allergy Unknown Unknown Verified 04/22/20 22:03 Quinolones Allergy Unknown Unknown Verified 04/22/20 22:03 trimethoprim Allergy Unknown Unknown Verified 04/22/20 22:03 Home Medications Home Medications Medication Instructions Recorded Confirmed Type albuterol sulfate 2 - 4 puff INHALATION Q6H PRN 05/03/18 04/22/20 History meclizine 25 mg PO TID PRN 05/03/18 04/22/20 History multivitamin 1 tab PO QAM 05/03/18 04/22/20 History fluoxetine 80 mg PO QAM 03/26/20 04/22/20 History lorazepam 1 - 2 mg PO HS 04/22/20 04/22/20 History propranolol 40 mg PO DAILY 04/22/20 04/22/20 History sodium chloride 1,000 mg PO DAILY 04/22/20 04/22/20 History sucralfate 1 g PO ACHS 04/22/20 04/22/20 History topiramate 100 mg PO BID 04/22/20 04/22/20 History modafinil 200 mg PO USEASDIRECTD 04/23/20 04/23/20 History Patient History Medical History Depression Migraine No pertinent family history PCOS (polycystic ovarian syndrome) POTS (postural orthostatic tachycardia syndrome) Surgical History H/O dilation and curettage H/O laparoscopy History of hysterectomy Hx of tonsillectomy Social History Smoking Status: Never smoker Hx Alcohol Use: Yes Hx Substance Use: No Preferred Language: [place]ian Communication Ability: Effective 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 Beliefs That Will Affect Care: None Current Living Situation: Spouse and Family Other Information That Helps Us Care for You: No Feels Safe at Home: Yes Safety Concerns: Feels Safe At This Time Assistive Devices: Glasses Assistive Devices Comment: retainer Review of Systems Review of Systems: All systems reviewed & are unremarkable except as noted in HPI & below Physical Exam Constitutional: + well hydrated and + obese; no acute distress Eyes: PERRL, conjunctivae normal, anicteric sclerae ENMT: external ear and nose normal, oropharynx normal Neck: trachea midline, no thyromegaly Respiratory: normal respiratory effort, lungs clear to auscultation Cardiovascular: Rate/Rhythm: regular rate and regular rhythm Heart Sounds: normal S1 and normal S2; no gallop and no murmur Palpation: normal PMI Vessels: normal carotid upstroke and radial pulses present; no JVD and no carotid bruit Extremities: no edema Gastrointestinal (Abdomen): normal bowel sounds, soft, nontender, no hepatosplenomegaly Musculoskeletal: no cyanosis or clubbing, extremities motor strength 5/5 Skin: no rashes, warm and dry Neurologic: PERRL, EOMI, accommodation nl, no face palsy, no dysarthria Psychiatric: A+Ox3, euthymic affect Results & Data ([facility]) Vital Signs (Past 12 Hours) Vital Signs Temp Pulse Pulse Resp BP BP Pulse Ox 04/27/20 11:31 36.5 C 50 L 18 156/99 H 96 04/27/20 09:39 64 04/27/20 08:51 36.3 C L 57 L 16 138/73 98 04/27/20 07:59 36.5 C 53 L 18 130/79 96 04/27/20 07:00 59 L 04/27/20 04:00 36.4 C L 45 L 18 152/87 H 96 Laboratory Results Laboratory Results - last 24 hr 04/26/20 04/26/20 04/27/20 17:26 20:08 06:10 ESR 31 H POC Glucose 128 H 156 H C-Reactive Protein HLA-B27 04/27/20 04/27/20 04/27/20 06:10 06:10 09:11 ESR POC Glucose 138 H C-Reactive Protein < 0.29 HLA-B27 Pending 04/27/20 11:14 ESR POC Glucose 104 H C-Reactive Protein HLA-B27
--- NOTE | 2020-04-27 17:19 | Hospitalist Progress Note ---
Date of Service April 27, 2020 Assessment & Plan (1) Diffuse cellulitis of face: No further evidence of cellulitis. Changed Unasyn to doxycycline for total 7 day course abx. She also received 3 days of Solumedrol 1gram IV that just finished. She reports a recurrence of these episodes of facial swelling in addition to a sunburn feeling with blistering of her skin both on her face and on bilateral extensor forearms. The episodes have an unknown trigger but have occurred frequently enough for her to notice a pattern in recent years. She reports polyarticular involvement including large and small joints. She reports morning stiffness for less than 30 minutes daily. She reports persistent enthesitis and specifically heel pain, and reports SI joint involvement. She reports episodic symptoms/occurrences. She denies having seen a owner operator tanker truck driver in the past other than distantly once. Will discuss with rheumatology and have her follow-up as outpatient, as suspect there may be a noninfectious component to this recurrent facial swelling. An heavy duty mechanic farm equipment is another good idea. (2) Post lumbar puncture headache: Anesthesia requested for a blood patch placement on 04/27 with resolution of headache. Worsened dizziness and orthostasis today, may be related to these recent CSF changes, high dose steroids, persistent abnormal vision, or POTS to name a few possibilities? Giving IVF now to see if this improves symptoms. Consult cardiology for thoughts and to help with ongoing chest pain. (3) Dizziness: plan as above. (4) Blurred vision, right eye: Blurred vision in right eye with painful movement. ?uveitis with other collection of skin and joint symptoms that are recurrent. HLA-B27 pending. This is persistent today. She was examined by Dr. Aaron, ophthalmology while inpatient and was given 3 days of Solu-Medrol 1000 mg IV. Brain MRI did not find evidence of optic neuritis on imaging, however white matter changes were present. Per neurology, an LP was performed with studies to exclude multiple sclerosis pending. Vision does not seem to be getting worse. Follow-up with ophthalmology as outpatient. (5) Chest pain: EKG with no evidence of ACS. 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 No pulmonary emboli were seen. 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 Echo requested for evaluation and appears within normal limits with mild valvulopathy, normal EF. Continue to monitor on telemetry for conduction system abnormalities. Normal inflammatory markers (poss skewed in setting of recent steroids) (6) POTS (postural orthostatic tachycardia syndrome): Continue salt tablets per home regimen. Cards eval as above. IVF as above. (7) Moose-Danlos disease: per history (8) Depression: Continue Ativan, fluoxetine, propanolol per home regimen. (9) DVT prophylaxis: SCDs/ambulation Full Code Dispo-to home when feeling less dizzy, tolerating food reliably and has better control of her chest pain which is persistent. Giulia Ambrose DO [facility] Hospitalist Admission and Anticipated Discharge Date Admission Date: April 23, 2020 Results & Data Results & Data ([facility]) Vital Signs (Past 12 Hours) Vital Signs Temp Pulse Pulse Resp BP Pulse Ox 04/27/20 15:45 55 L 04/27/20 15:14 36.8 C 53 L 18 116/75 95 04/27/20 11:31 36.5 C 50 L 18 156/99 H 96 04/27/20 09:39 64 04/27/20 08:51 36.3 C L 57 L 16 138/73 98 04/27/20 07:59 36.5 C 53 L 18 130/79 96 04/27/20 07:00 59 L
[2020-04-27] MEDS ORDERED: predniSONE 20 MG TAB PO STA (17:25)
[2020-04-27] MEDS: LORazepam 1 MG TAB PO SCH (21:19)
[2020-04-27 23:46] LABS: Immunoglobulin G4 11.8 mg/dL (4.0-86.0)
[2020-04-28] MEDS: SODIUM CHLORIDE 0.9% 1000ML 1,000 ML IV SCH (05:05)
[2020-04-28] MEDS: FLUoxetine HCL 20 MG CAP PO SCH (08:40)
[2020-04-28] MEDS: MULTIVITAMIN TAB PO SCH (08:40)
[2020-04-28] MEDS: SODIUM CHLORIDE 1 GM TABLET PO SCH (08:40)
[2020-04-28] MEDS: PROPRANOLOL HCL 20 MG TAB PO SCH (08:41)
[2020-04-28] MEDS: TOPIRAMATE 100 MG TAB PO SCH ×2 (08:41→14:35)
[2020-04-28] MEDS: CETIRIZINE HCL 10 MG TABLET PO SCH (08:41)
[2020-04-28] MEDS: DOXYCYCLINE HYCLATE 100 MG CAP PO SCH (08:42)
[2020-04-28] MEDS: INSULIN ASPART 100 UNITS/ML 3 ML PEN SC SCH ×2 (08:47→12:31)
[2020-04-28] MEDS ORDERED: predniSONE 20 MG TAB PO SCH (09:00)
--- NOTE | 2020-04-28 15:20 | Discharge Summary ---
Date of Service April 28, 2020 Admission HPI Per Admitting Provider HISTORY OF PRESENT ILLNESS: This is a 45-year-old female with past medical history significant for polycystic ovarian syndrome, impaired fasting glucose, hypothyroidism, obstructive sleep apnea on CPAP, hx of POTS, morbid obesity, vitamin D deficiency, urticaria due to heat, migraines, autonomic dysfunction, allergic contact dermatitis due to adhesives, major depression, history of syncope, generalized anxiety disorder, social anxiety disorder, binge eating disorder, who lives with her and family, comes because of facial swelling. The patient initially she was treated for right lower extremity cellulitis in February. She developed right-sided neck pain with right retroauricular mass and treated with doxycycline. Lyme testing at that time was negative. Blood cultures were negative. At that time, a CT scan of the neck was done which showed inflammatory process identified in the soft tissue of the right posterior neck below the skull base centered around the sternocleidomastoid muscle suggestive of cellulitis, myositis, lymphadenitis, and she had a course of prednisone and also 2 courses of doxycycline. At that time, and got improved and then got worse and again on 03/31/2020, she had daily ceftriaxone for 5 days with resolution of redness, but still with some swelling and she was transitioned to Keflex on 04/04/2020 and doxycycline was completed. She had increased right neck swelling again with ongoing night sweats and she was seen by [facility] by Dr. Dao Calhoun and since the patient has 3 cats at home and dog, thought could be cat-scratch disease and she was prescribed 10 days of azithromycin, started on 04/13/2020, and also suggested, if it does not improve, for biopsy. With azithromycin, symptoms of the neck mass, right periauricular mass and tenderness improved and swelling has gone down and she almost finished the course, has only one more day of azithromycin left, but on pharmacy graduate intern of 04/22/2020 at 2:00 a.m., she woke up with facial swelling, lumps on the face more on the right side than the left side and also some difficulty swallowing. It was not getting better and also had blurred vision in the right eye. She called ID, Dr. Calhoun, at [facility] and he referred to come to the ER and when she came in, CT of the head was done in the ER which was unremarkable. Soft tissue neck was done again, which shows mild bilateral periorbital and premalar soft tissue inflammation, right greater than left, correlate clinically for evidence of mild bilateral periorbital facial cellulitis. Inflammatory process identified in the right posterior neck seen on 03/26/2020 has resolved. There is enlargement of the palatine and lingual tonsils which caused narrowing of the airway. This is similar to appearance of 03/26/2020. Possible mild pharyngitis, tonsillitis. She also had out patient lab work tested. Her B. henselae titers seem to be negative so far. Her syphilis screen was negative, HIV screen was negative. Toxoplasma screen came positive for IgM and negative for IgG. ID want to recheck it before plan for any treatment. In the ER currently received Unasyn, Decadron, IV Benadryl, and IV famotidine. Currently, swelling seems to be much improved and she was able to swallow popsicle, but she still has blurred vision in the right eye.Complains of eye pain and burning pain in the face. There is no redness seen in the right eye. She has some mild redness of the face, more on the right side. Hemodynamically stable, afebrile, saturating fine in the room air. No leukocytosis. ESR is 25. Rest of the labs are okay. She says she has had some chest pain before, but it got resolved with sucralfate. Denies any shortness of breath. Has some headache. Currently no nausea. Normal bowel and bladder movements. No abdominal pain. Otherwise, she ambulates fine. Admission Exam Per Admitting Provider PHYSICAL EXAMINATION: GENERAL: The patient is obese, not in acute distress. VITAL SIGNS: Temperature 37, pulse 70, respiratory rate 16, blood pressure 124/74, oxygen 94% on room air. HEENT: No pallor, no icterus. Pupils equal, round, reactive to light. Some blurred vision in the right eye as per the patient. Some mild erythema seen on the face involving mostly the cheeks and forehead and chin region, slightly more prominent on the right side. No swelling of the eyes or erythema of the eyes or red eye seen. NECK: No JVD, no neck masses. CARDIOVASCULAR: S1, S2 heard, regular rate and rhythm, no murmur, no gallop. RESPIRATORY SYSTEM: Normal AP diameter. No accessory muscle use. No wheezing, no crackles. ABDOMEN: Soft, bowel sounds present, nontender. No distention. CENTRAL NERVOUS SYSTEM: Cranial nerves II through XII grossly intact, nonfocal. EXTREMITIES: No edema, no erythema. Principal Diagnosis periorbital/facial cellulitis Blurred vision, right eye (possible optic neuritis) atypical chest pain postural orthostatic tachycardia syndrome (POTS) Moose Danlos syndrome Discharge Exam CONSTITUTIONAL: obese, vitals as above, generally well appearing, brighter and happy, reports feeling back to herself EYES: normal conjunctivae, no scleral icterus ENT: external ear and nose normal. Skin is normal today. No evidence of blistering or cellulitis. RESPIRATORY: clear to auscultation bilaterally, no crackles, rales or wheezes, normal respiratory effort CARDIOVASCULAR: regular rate and rhythm, S1 and 2 heard without murmurs, gallops or rubs, no JVD, no peripheral edema MUSCULOSKELETAL: strength 5/5 throughout, head is normocephalic and atraumatic SKIN: warm and dry NEUROLOGIC: No facial palsy, no dysarthria. CN 2-12 grossly intact, no sensory deficit, normal cognition, No gross focal deficits x ?vision issues on right eye. PSYCHIATRIC: alert cooperative and oriented to person, place and time. Discharge Data Allergies Allergy/AdvReac Type Severity Reaction Status Date / Time latex Allergy Intermediate HIVES Verified 04/22/20 22:03 Bactrim Allergy Mild HIVES Verified 05/09/17 11:59 Cipro Allergy Mild HIVES Verified 05/09/17 11:59 ciprofloxacin Allergy Mild HIVES Verified 04/22/20 22:03 sulfamethoxazole Allergy Mild HIVES Verified 04/22/20 22:03 Cephalosporins Allergy Unknown Hives Verified 04/22/20 22:03 chlorpheniramine Allergy Unknown Unknown Verified 04/22/20 22:03 propoxyphene Allergy Unknown Unknown Verified 04/22/20 22:03 Quinolones Allergy Unknown Unknown Verified 04/22/20 22:03 trimethoprim Allergy Unknown Unknown Verified 04/22/20 22:03 Consultations 04/22/20 23:03 ED Decision to Admit Stat 04/23/20 09:00 Consult Ophthalmology Routine 04/23/20 10:22 Consult Neurology Routine 04/26/20 13:42 Consult Anesthesiology Routine 04/27/20 10:55 Consult Cardiology Routine Ordered Studies 04/22/20 20:18 CT head/brain wo con Stat CT soft tissue neck w con Stat 04/23/20 11:56 MR brain wo/w con Routine 04/25/20 10:01 FL lumbar puncture diagnostic Routine 04/26/20 13:23 CT angio chest dissec wo/w con Stat Hospital Course (1) Diffuse cellulitis of face: (2) Post lumbar puncture headache: (3) Dizziness: (4) Blurred vision, right eye: (5) Chest pain: (6) POTS (postural orthostatic tachycardia syndrome): (7) Moose-Danlos disease: (8) Depression: The patient is a 45-year-old female who presented with facial swelling and erythema, difficulty swallowing and some right eye blurry vision. These were worsening of ongoing symptoms since February when she had a right lower extremity cellulitis. She has recently been on outpatient antibiotics. In the ER she received Decadron IV Benadryl, IV Pepcid and Unasyn and was admitted to the hospitalist service. Ophthalmology was consulted and proposed a differential diagnosis including but not limited to preseptal cellulitis, and allergic reaction and optic neuritis. She was continued on IV Decadron and IV Unasyn and it was recommended to increase her steroid dose for treatment of possible optic neuritis, given her pain with eye movements and mild decrease in vision. She was given 1000 mg of Solu-Medrol for 3 days consecutively then taper down, with no changes in vision in the short term. She underwent an MRI of the brain with and without IV contrast revealing no evidence of intracranial mass, no evidence of acute or subacute infarction. A few nonspecific foci of signal within the white matter were seen and neurology was consulted. She also underwent a lumbar puncture that was negative for infection with additional serology pending at time of discharge. As a complication of the lumbar puncture she developed a post LP headache which required a blood patch on 04/26. She also underwent an echocardiogram on 04/26 revealing an ejection fraction 55 to 60% normal left ventricular wall motion, mild aortic regurgitation, mild mitral regurgitation, mild tricuspid regurgitation with Doppler findings not suggestive of pulmonary hypertension. She did have chest pain and in the setting of Moose-Danlos this had been performed as well as a CT aortogram to ensure no evidence of aortitis was present. Workup was negative. She was placed on telemetry and no cardiac conduction abnormalities were seen on telemetry throughout her hospitalization. She also had minimal inflammatory markers but this was after recent treatments with antibiotics as outpatient, and after steroids. Cardiology was also consulted to evaluate her chest pain. The teacher aide recommended the symptoms were very atypical for cardiac origin with no signs of ischemia by EKG or enzymes. With the echocardiogram showing no effusion and preserved LV functions, no family history of premature cardiac disease and no personal history of marked hyperlipidemia or hypertension, it was suspected the chest pain may be of GI origin with recent antibiotics and corticosteroids. A stress echocardiogram after discharge could be entertained after current issues resolved. No further cardiac work-up was done this hospitalization. Her chest pain was resolving by the time of discharge. At time of discharge she was hemodynamically stable and afebrile and tolerating p.o. She had a complete resolution of redness on her face with some remaining right eye tenderness with movement and right eye blurriness, complete resolution of swelling in her throat with no issues swallowing at time of discharge, complete resolution of cellulitis of her lower extremity and resolution of her headache status post blood patch placement with no other concerning symptoms. She was hemodynamically stable and afebrile and oxygenating well on room air. She was mentating and ambulating at baseline and was sent home in stable condition with close primary care follow-up to follow-up the remaining lumbar puncture studies that were still pending at time of discharge. Of note she does report a recurrence of facial swelling in addition into blistering of her skin both on her face and bilateral extensor forearms in the past. She has been seen by dermatology in the past but not by rheumatology. She does also report polyarticular involvement including large and small joints and morning stiffness for less than 30 minutes daily that improves with exercise. She does report persistent enthesitis specifically with her heels and does report SI joint involvement. I did discuss this peripherally with rheumatology who will contact her for follow-up as outpatient post discharge. An HLA-B27 was checked and negative, however, rheumatology noted that these types of symptoms may also be seen in Moose-Danlos patients. This was communicated to the patient and followup with them post discharge should be considered. A follow-up with Allergy/Immunology was also recommended with the reported recurrent swelling in her face. On another note, a toxoplasma serology level was ordered, and positive for which she was treated with a course of azithromycin for toxoplasma infection. CRP was initially 13 and trended to 5 after [facility] the [facility], and then <1 seen while here. She was already seen by [facility] infectious diseases and should follow up with them for further discussion regarding reassessment as needed until symptoms completely resolve. Total Time Total Time Spent Total Time Spent (In Minutes): 60 Total Time Includes: Examination of the Patient, Discharge Planning, Medication Reconciliation and Communication With Other Providers Discharge Plan Discharge Items Patient Disposition: Home - Self-Care Reason For Visit: FACIAL SWELLING AND PAIN Discharge Diagnosis: periorbital/facial cellulitis Blurred vision, right eye (possible optic neuritis) atypical chest pain postural orthostatic tachycardia syndrome (POTS) Moose Danlos syndrome Condition on Discharge: Good Activity: Resume your previous activity Non-emergency contact: Primary Care Provider Call non-emergency contact if: you have any medication questions and your symptoms worsen Follow-up/Referrals: Ezequiel Jang MD [Primary Care Provider] - (Date & Time 05/02/2020 3:20 PM Provider Hany Nguyen MD Department [facility] ) Diet: Regular Addtl Attending Provider Instructions: Please take all medications as instructed on discharge list below. You are on a prednisone taper as follows: 40mg x 2 days (start 04/29), then 20mg x 2 days, then 10mg x 2 days, then stop. Please follow-up your spinal study results with your primary care physician and consider outpatient follow-up with Dr. Weston at [facility] in the next few weeks. Please followup with primary care physician (PCP) at the date and time listed above. Please consider follow-up with the following specialties in the next couple of weeks. You may need referrals from your PCP office. -Ophthalmology for re-evaluation of your right eye -Allergy/Immunology to discuss initial swelling and blistering from this hospitalization. -Rheumatology (we talked about Dr. Rowdy Salazar from [facility]) Your chest pain is persistent and you were seen by a teacher aide while in the hospital. He recommended an outpatient stress test when able to gauge your risk of cardiac disease. It was a pleasure taking care of you! Please call if you have any questions or problems. You can reach a [facility] hospitalist on duty at [facility] 24 hours a day by calling [phone]. Take care of yourself. Giulia Ambrose DO [facility] Hospitalist [facility] [employer] Provider Instructions: Pending Studies at Discharge: Yes Stand-Alone Forms: [facility] Medications and DC Order Prescriptions: New prednisone 10 mg tablet 10 mg PO .daily as directed Qty: 15 RF: 0 Continued multivitamin Tablet 1 tab PO QAM RF: 0 meclizine 25 mg Tablet 25 mg PO TID PRN (Reason: Dizziness) RF: 0 albuterol sulfate 90 mcg/actuation Hfa Aerosol Inhaler 2 - 4 puff INHALATION Q6H PRN (Reason: Wheezing) RF: 0 lorazepam 1 mg tablet 1 - 2 mg PO HS RF: 0 topiramate 100 mg tablet 100 mg PO BID RF: 0 sodium chloride 1 gram Tablet 1,000 mg PO DAILY RF: 0 propranolol 40 mg tablet 40 mg PO DAILY RF: 0 modafinil 200 mg tablet 200 mg PO USEASDIRECTD RF: 0 fluoxetine 40 mg capsule 80 mg PO QAM RF: 0 Discontinued sucralfate 1 gram tablet 1 g PO ACHS RF: 0 Discharge Orders: Discharge Order (Routine); Ordered 04/28/20 Ordered By: Giulia Ambrose Admission Data Admit Date/Time: 04/23/20 18:39 Attending Provider: Giulia Ambrose Admit Provider: Izaiah Velasquez Primary Care Provider: Ezequiel Jang Other Providers: Izaiah Velasquez ; Isac Aaron ; Lars Weston ; Roland Jarrett ; Bakari Saini Other Interventions: Discharge Summary Assessment (RN) Last Done: 04/28/20 15:51
[2020-04-28 22:51] LABS: Lyme DNA PCR CSF or Synovial Not detected (Not Detected); Lyme DNA Source CSF; Lyme IgG Band Pattern CSF DNR; Lyme IgG CSF NO BANDS DETECTED; Lyme IgM Band Pattern CSF DNR; Lyme IgM CSF NO BANDS DETECTED
[2020-04-29 18:17] LABS: Toxoplasma gondii IgG Ab, EIA <7.20 IU/mL
[2020-05-03] MEDS ORDERED: predniSONE 10 MG TABLET PO SCH (09:00)
[2020-05-04 07:22] LABS: Albumin 3.4 g/dL (3.5-5.2); Albumin, CSF 11.5 mg/dL (8.0-42.0); IgG CSF 1.6 mg/dL (0.8-7.7); IgG Serum 955 mg/dL (600-1640); Myelin Basic Protein <2.0 mcg/L (2.0-4.0)
== END 2020-04-28 16:45 | disposition home or self-care (01) | DRG 603 ==
LOC: 3N 17:11 → ED 17:11 → 3N 04-23 00:52 → SUATTDRO 04-23 18:39 → 2N 04-26 16:53